=== PATIENT | male | born 1940 | race Caucasian/White ===

== ENCOUNTER 2016-09-22 06:47 | Inpatient (IN) | payer MEDICARE, BC ==
[2016-09-22] VITALS (23 sets, daily range): BP systolic 125–183; BP diastolic 61–98; PULSE 66–94; RESP 11–19; Ht 180.3 cm; Wt 82.3 kg
[~2016-09-22] VITALS: Ht 180.3 cm; Wt 82.3 kg
[~2016-09-22 06:47] MED LIST: ATOR20TA38 PO; BENA20TA48 PO; HYDR12.58 PO; MELO7.5O PO; METFORMIN PO; SITA50TA2 PO; TAMS0.4C2 PO
[2016-09-22] MEDS ORDERED: ROCURONIUM 50 MG INJ ONE ×2 (07:00→12:03)
[2016-09-22] MEDS ORDERED: METF500T4 PO (07:57)
[2016-09-22] MEDS ORDERED: BENA10TA48 PO (07:58)
[2016-09-22] MEDS ORDERED: DOCU100C59 PO (07:59)
[2016-09-22] MEDS ORDERED: CEFAZOLIN 2 GM/50 ML (PMX) 50 ML IVPB SCH (08:30)
[2016-09-22] MEDS ORDERED: LACTATED RINGER'S 1,000 ML IV* SCH (08:30)
[2016-09-22] MEDS ORDERED: D5W-0.45 NACL + KCL 20 MEQ 1,000 ML IV SCH (10:20)
--- NOTE | 2016-09-22 10:20 | HPN ---
Date/Time of Note Date/Time of Note DATE: 09/22/16 TIME: 10:19 Interval H&P Admission Note Pt. seen H&P reviewed: No system changes ARMOND MALDONADO PA-C Sep 22, 2016 10:20
[2016-09-22] MEDS ORDERED: ONDANSETRON 4 MG INJ IV PRN ×2 (10:30→12:30)
[2016-09-22] MEDS ORDERED: BISACODYL 10 MG SUPP PR PRN (10:30)
[2016-09-22] MEDS ORDERED: DIPHENHYDRAMINE 50 MG INJ IV PRN ×2 (10:30→12:30)
[2016-09-22] MEDS ORDERED: AL HYDROX/MG HYDROX/SIMETH 30 ML CUP PO PRN (10:30)
[2016-09-22] MEDS ORDERED: CEPASTAT LOZENGE MT PRN (10:30)
[2016-09-22] MEDS ORDERED: ZOLPIDEM 5 MG TAB PO PRN (10:30)
[2016-09-22] MEDS ORDERED: HYDROmorphONE 1 MG/ML SYG IV PRN (10:30)
[2016-09-22] MEDS ORDERED: NALOXONE (0.4 MG/ML) INJ IV PRN (10:30)
[2016-09-22] MEDS ORDERED: ACETAMINOPHEN 325 MG TAB PO PRN (10:30)
[2016-09-22] MEDS ORDERED: POLYMYXIN/BACITRACIN 1L IRRIG ONE (10:38)
[2016-09-22] MEDS ORDERED: BUPIVACAINE 0.25%/EPI (SDV) 30 ML INJ ONE (10:38)
[2016-09-22] MEDS ORDERED: CA CHLORIDE 10% 10 ML SYRINGE ONE (10:38)
[2016-09-22] MEDS ORDERED: THROMBIN 5000 UNIT VIAL ONE (10:38)
[2016-09-22] MEDS ORDERED: SURGIFOAM POWDER 1 GM KIT ONE (10:38)
[2016-09-22] MEDS ORDERED: FENTAnyl 50 MCG/ML VIAL ONE ×2 (11:11→13:47)
[2016-09-22] MEDS ORDERED: NEOSTIGMINE 3 MG/3 ML SYRINGE ONE (12:03)
[2016-09-22] MEDS ORDERED: LIDOCAINE 2% (SDV) 5 ML INJ ONE (12:03)
[2016-09-22] MEDS ORDERED: PROPOFOL 40 ML ONE (12:03)
[2016-09-22] MEDS ORDERED: GLYCOPYRROLATE 1 MG INJ ONE (12:03)
[2016-09-22] MEDS ORDERED: SUCCINYLCHOLINE CHLORIDE 100 MG/5 ML SYG IV ONE (12:03)
[2016-09-22] MEDS ORDERED: CEFAZOLIN 1 GM INJ ONE (12:03)
[2016-09-22] MEDS ORDERED: MEPERIDINE 25 MG INJ IV PRN (12:30)
[2016-09-22] MEDS ORDERED: METOCLOPRAMIDE 10 MG INJ IV PRN (12:30)
[2016-09-22] MEDS ORDERED: HYDROmorphONE (0.2 MG/ML) 10ML SYG IV PRN ×2 (12:30)
[2016-09-22] MEDS ORDERED: FENTAnyl 50 MCG/ML VIAL IV PRN (12:30)
[2016-09-22] MEDS: HYDROmorphONE (0.2 MG/ML) 10ML SYG IV PRN ×2 (15:48→16:04)
[2016-09-22] MEDS: HYDROmorphONE 0.2 MG/ML PCA IV SCH (15:48)
--- NOTE | 2016-09-22 15:48 | OPR ---
Date/Time of Note Date/Time of Note DATE: 09/22/16 TIME: 15:47 Operative Report Preoperative Diagnosis painful deg scoli Postoperative Diagnosis painful deg scoli Operation/Procedure Performed L2-5 instrumented fusion Surgeon: JAKOB CHOW MD electrician assistant: ARMOND MALDONADO PA-C Anesthesia: general Estimated Blood Loss: 50 - 100 ml's Specimens mole Grafts/Implants altus Complications: None JAKOB CHOW MD Sep 22, 2016 15:48
[2016-09-22] MEDS ORDERED: hydrALAzine 20 MG INJ IV PRN (16:19)
[2016-09-22] MEDS: hydrALAzine 20 MG INJ IV PRN ×2 (16:25→16:34)
--- NOTE | 2016-09-22 16:48 | OPR ---
DATE OF OPERATION: 09/22/2016 PREOPERATIVE DIAGNOSES: 1. Degenerative painful lumbar scoliosis at L2-3, L3-4, L4-5 2. History of previous lumbar laminectomy. POSTOPERATIVE DIAGNOSES: 1. Degenerative painful lumbar scoliosis at L2-3, L3-4, L4-5 2. History of previous lumbar laminectomy. OPERATION PERFORMED: 1. Placement of bilateral pedicle screws at L2, L3, L4, L5 using [employer] navigation. 2. Posterolateral fusion at L2-3, L3-4, L4-5. 3. Use of allograft. 4. Use of C-arm fluoroscopy with interpretation without radiologist present. 5. Intraoperative neuromonitoring (3.5 hours). IMPLANTS: 1. Hinkley Fontaine pedicle screws, 6.5 x 45 mm at L2 bilaterally, 6.5 x 50 mm at L3 bilaterally, 7.5 x 45 mm at L4 and L5 bilaterally. 2. 90 mm rods bilaterally. 3. Fibergraft. PRIMARY SURGEON: Kaushal Martinez MD OIL RECOVERY OPERATOR: Parvin Elmore PA-C NEED FOR INDUCTION BRAZER: During this spinal surgical procedure, my outreach assistant was used to retrac t and protect the spinal nerves and dural sac. My outreach assistant also employed the suction catheters to evacuate blood from the surgical field to improve visualization of the neural structures. The gregorio tant was medically necessary to facilitate the completion of the surgery in a safe and expeditious edward. State of [place] regulations, as well as hospital bylaws, preclude the use of non-license d health care personnel, such as operating room technicians, to perform these functions. FINDINGS: Neuromonitoring at the start of the case revealed left L2 amplitude down 60%, left L3 amp litude down 50%, right L3 amplitude down 30%, left L4 amplitude down 40%, left L5 amplitude down 40% , right L5 amplitude down 20%. At the end of the case, nerve signals returned to normal. The patie nt had degenerative deformity of the lumbar spine. ESTIMATED BLOOD LOSS: 100 mL. DRAINS: None. SPECIMENS: A mole that was in the way during the incision was removed and sent for pathology. COMPLICATIONS OF PROCEDURES: None. ANESTHESIOLOGIST: Dr. Brown TYPE OF ANESTHESIA: General. INDICATIONS FOR PROCEDURE: This is a 75-year-old gentleman with a previous lumbar laminectomy. He has had persistent back pain with instability which is felt to be due to the lumbar scoliosis with t he degenerative deformity. Given this, I recommended proceeding with the above-mentioned surgery. Preoperatively, we discussed the risks, benefits, and alternatives. He understood and wished to pro ceed. DESCRIPTION OF PROCEDURE IN DETAIL: The patient was identified in the preoperative holding area, jerry crawford, taken to the operating room, where he was successfully placed under general an esthesia. Neuromonitoring leads were placed, sequential compressive devices were applied. Givens ca theter was introduced. Neuromonitoring was utilized during this portion of the procedure for 3.5 ho urs to include SSEP, MEP, and EMG. This was performed by [employer]. Start time was 11:45 a. m., closure time was 3:20 p.m. The patient was placed on the operating chair in prone position over a Tai frame. I placed 2 pins into the left iliac crest in order to use the navigation system [employer]. I used both this system and the C-arm to identify the incision sites. I made parasagi ttal incisions bilaterally from L2 to L5. Of note, the L5 level was a transitional level, and I am calling the lowest mobile disk L4-L5 and calling a sacralization of L5 for semantic purposes. I inj ected the paraspinal musculature with 0.25% Marcaine and epinephrine. Incision was made. The fasci a was incised. I then used a Jamshidi needle white using the [employer] navigation and entered the pe dicles of L2, L3, L4, and L5 bilaterally, followed by placement of guidewires. I then placed the ap propriate size pedicle screws at L2, L3, L4, L5 bilaterally, confirming placement with C-arm guidanc e. I then stimulated each of the screws, and there was no evidence of cortical breach. I then plac ed a 90 mm janessa bilaterally with set screws placed with tightening per manufacture's specifications. I removed the extended tabs. I then exposed the transverse process from L2 to L5. I burred the tr ansverse processes bilaterally and placed allograft posterolaterally at L2-3, L3-4, and L4-5 for pos terolateral fusion at these levels. I took final AP and lateral images and was happy with the place ment of the hardware and alignment of the spine. The wound was irrigated and closed in layers using #1 Vicryl, 2-0 Vicryl, 4-0 Monocryl. Dermabond was then applied. The patient was then awakened fr om anesthesia and taken to recovery in stable condition. Lap, sponge, and instrument counts were co rrect x2. There were no apparent complications during the procedure. The patient will be admitted to the orthopedic chau for routine postoperative care to include pain c ontrol, neurovascular checks, antibiotics, and physical therapy. Dictated By: KAUSHAL LUZ/VASILE Conf#: [id number] DID#: [id number]
[2016-09-22] MEDS ORDERED: CEFAZOLIN 1 GM/50 ML (PMX) 50 ML IVPB SCH (17:00)
--- NOTE | 2016-09-22 17:06 | RADRPT ---
PROCEDURE: Intraoperative fluoroscopy. CLINICAL INDICATION: Intraoperative fluoroscopy during lumbar spine surgery. TECHNIQUE: 10 spot intraoperative fluoroscopic images were provided. The images were reviewed on a high-resolution PACS workstation. COMPARISON: X-ray 09/25/2014 FINDINGS: Multiple spot intraoperative fluoroscopic views were provided during lumbar spine surgery. The imag es demonstrate additional metallic probes at the L2, L3, L4 and L5 levels. Subsequent images demons trate placement of paired pedicle screws in L2, L3, L4, L5 vertebral bodies with associated paraspin al fusion rods. The total fluoroscopy time was 209.8 seconds. IMPRESSION: 1. Multiple spot intraoperative fluoroscopic views during lumbar spine surgery were provided. 2. Please see operative report of the same day for further information. RPTAT: HGAS .Demario Pitt MD, Date Time Electronically viewed and signed by .Demario Pitt MD, on 09/22/2016 17:06 .S/
[2016-09-22] MEDS ORDERED: GLUCOSE GEL 15 GRAM TUBE BUCCAL PRN (17:30)
[2016-09-22] MEDS ORDERED: DEXTROSE 50% 50 ML SYRINGE IV PRN ×2 (17:30)
[2016-09-22] MEDS ORDERED: GLUCAGON 1 MG INJ IM PRN (17:30)
[2016-09-22] MEDS ORDERED: GLUCOSE GEL 15 GRAM TUBE PO PRN ×2 (17:30)
[2016-09-22] MEDS: BENAZEPRIL 10 MG TAB PO SCH (17:37)
[2016-09-22] MEDS: INSULIN ASPART [NOVOLOG] 3 ML PEN SC SCH (17:38)
[2016-09-22] MEDS: SOD CHLORIDE 0.9% 1,000 ML IV SCH (17:38)
--- NOTE | 2016-09-22 17:52 | CONS ---
DATE OF ADMISSION: 09/22/2016 DATE OF CONSULTATION: 09/22/2016 TYPE OF CONSULTATION: Thank you very much for allowing me to evaluate this 75-year-old male who jus t underwent lumbar back surgery. HISTORICAL EVENTS: As you well know, he has had multiple back surgeries and because of persistent m ultiple back surgeries, initially in 1990 for left-sided foot drop and then in November 2013, underwen t the C2-7 posterior cervical decompression with improvement in foot drop and his gait in 09/2014. He then underwent an L3-S1 decompression with subsequent surgery in 06/2015 followed by RF ablation in 12/2015 and 2016. Because of continued low back pain, elected to proceed with repeat surgery. In recovery room, his lips are quite dry. He is a bit hoarse but denies cough, wheezing, shortness of breath, nausea, vomiting, abdominal or chest pain. PAST MEDICAL HISTORY: Includes diabetes, hypertension, hyperlipidemia, shoulder replacement (right) . SOCIAL HISTORY: Does not smoke, does not drink. ALLERGIES: NONE. MEDICATIONS: 1. Atorvastatin 20. 2. Benazepril 10 mg per day. 3. Januvia 50. 4. Metformin 500 mg b.i.d. 5. Stool softener. 6. Tamsulosin 0.4. PHYSICAL EXAMINATION: GENERAL: Comfortable male in no acute distress. VITAL SIGNS: BP 158/80, pulse 70, respirations are 20. He was afebrile. EYES: Extraocular muscles were full. NOSE, MOUTH, AND THROAT: Normal. NECK: Supple. There was no jugular venous distention, thyroid enlargement or adenopathy. Carotids 2+, no bruits. LUNGS: Clear. HEART: Rhythm regular, no murmur. No third or fourth sound. ABDOMEN: Nontender. Liver and spleen were not palpable. No masses or tenderness were noted. EXTREMITIES: No edema. Calves nontender. Pulses 2+. NEUROLOGIC: No lateralizing motor weakness. No gross lateralizing motor weakness. IMPRESSION: 1. Stable postop lumbar back surgery. 2. History of hypertension. 3. Medications to be continued. 4. Diabetes. PLAN: Will continue metformin. Sugars will be titrated before meals. IV fluids to be changed to n ormal saline after present IV is complete. We will be alert to postoperative urinary retention and follow with you. Dictated By: RAUL JORDAN MD MR/NTS Conf#: [id number] DID#: [id number]
[2016-09-22] MEDS: CEFAZOLIN 1 GM/50 ML (PMX) 50 ML IVPB SCH (19:33)
[2016-09-22] MEDS: CYCLOBENZAPRINE 10 MG TAB PO PRN (19:50)
[2016-09-22] MEDS: TAMSULOSIN (SR) 0.4 MG CAP PO SCH (21:52)
[2016-09-22] MEDS: ATORVASTATIN 20 MG TAB PO SCH (21:53)
[2016-09-22] MEDS: DOCUSATE SODIUM 100 MG CAP PO SCH (21:53)
[2016-09-23] VITALS (10 sets, daily range): BP systolic 121–157; BP diastolic 58–76; PULSE 75–89; RESP 16–20
[2016-09-23] MEDS: CEFAZOLIN 1 GM/50 ML (PMX) 50 ML IVPB SCH ×2 (04:05→12:50)
[2016-09-23] MEDS: SOD CHLORIDE 0.9% 1,000 ML IV SCH ×4 (04:09→23:00)
[2016-09-23] MEDS: HYDROmorphONE 0.2 MG/ML PCA IV SCH (04:35)
[2016-09-23 06:04] LABS: ADD SCAN DIFF NO
[2016-09-23 06:19] LABS: BASOPHILS % 0.1 % (0.0-2.0); EOSINOPHILS % 0.2 % (0.0-7.0); HEMATOCRIT 36.4 % (42.0-52.0); HEMOGLOBIN 11.9 g/dl (14.0-18.0); LYMPHOCYTES # 0.9 10^3/ul (0.8-2.9); LYMPHOCYTES % 8.1 % (15.0-51.0); MEAN CORPUSCULAR HEMOGLOBIN 30.4 pg (29.0-33.0); MEAN CORPUSCULAR HGB CONC 32.7 g/dl (32.0-37.0); MEAN CORPUSCULAR VOLUME 92.9 fl (82.0-101.0); MEAN PLATELET VOLUME 10.4 fl (7.4-10.4); MONOCYTE # 0.7 10^3/ul (0.3-0.9); MONOCYTES % 6.3 % (0.0-11.0); NEUTROPHIL # 9.7 10^3/ul (1.6-7.5); NEUTROPHILS % 84.9 % (39.0-77.0); PLATELET COUNT 178 10^3/UL (140-415); RED BLOOD COUNT 3.92 10^6/ul (4.70-6.10); RED CELL DISTRIBUTION WIDTH 14.3 % (11.5-14.5); WHITE BLOOD COUNT 11.5 10^3/ul (4.8-10.8)
[2016-09-23 06:41] LABS: CALCIUM 8.6 mg/dl (8.4-10.2); CREATININE 1.06 mg/dl (0.61-1.24); MAGNESIUM 1.8 mg/dl (1.7-2.5); POTASSIUM 4.7 mmol/L (3.5-5.1)
--- NOTE | 2016-09-23 08:01 | CONS ---
Date/Time of Note Date/Time of Note DATE: 09/23/16 TIME: 07:59 Consultation Date/Type/Reason Admit Date/Time Sep 22, 2016 at 06:47 Initial Consult Date 09/23/16 Type of Consultation: Anesthesiology Reason for Consultation Follow up 24 HR Interval Summary Free Text/Dictation Pt seen at bedside is POD#1 s/p L2-5 Posterior Instrumented Fusion. Pt states he is doing well and his pain is adequately controlled via DEPUTY EDITOR IN CHIEF. No N/V/D/CAMPA. Voice is still horse and at baseline. No Anesthetic complications. Constitutional: improved, no complaints Exam/Review of Systems Vital Signs Vitals Vital Signs Date Time Temp Pulse Resp B/P Pulse Ox O2 Delivery O2 Flow Rate FiO2 09/23/16 07:54 98.6 91 20 157/75 94 09/23/16 04:18 Nasal Cannula 2.0 Intake and Output 09/22/16 09/22/16 09/23/16 15:00 23:00 07:00 Intake Total 1890 ml 1300 ml Output Total 300 ml 800 ml Balance 1590 ml 500 ml Results Result Diagram: 09/23/16 0453 09/23/16 0453 Results 24 hrs Laboratory Tests Test 09/22/16 08:32 09/22/16 16:40 09/22/16 17:30 09/23/16 04:53 Bedside Glucose 127 185 183 White Blood Count 11.5 #H Red Blood Count 3.92 #L Hemoglobin 11.9 #L Hematocrit 36.4 #L Mean Corpuscular Volume 92.9 Mean Corpuscular Hemoglobin 30.4 Mean Corpuscular Hemoglobin Concent 32.7 Red Cell Distribution Width 14.3 Platelet Count 178 Mean Platelet Volume 10.4 # Neutrophils % 84.9 H Lymphocytes % 8.1 L Monocytes % 6.3 Eosinophils % 0.2 Basophils % 0.1 Nucleated Red Blood Cells % 0.0 Neutrophils # 9.7 H Lymphocytes # 0.9 Monocytes # 0.7 Eosinophils # 0.0 Basophils # 0.0 Nucleated Red Blood Cells # 0.0 Sodium Level 138 Potassium Level 4.7 Chloride Level 105 Carbon Dioxide Level 25 Anion Gap 13 Blood Urea Nitrogen 25 H Creatinine 1.06 Glucose Level 155 Calcium Level 8.6 Phosphorus Level 4.2 Magnesium Level 1.8 Medications Medications Current Medications Lactated Ringer's (Lr) 1,000 ml @ 20 mls/hr Q24H IV* Last administered on 09/22 15:50; Admin Dose 20 MLS/HR; Start 09/22/16 at 08:30; Stop 09/24/16 at 10: 29 Oxycodone/ Acetaminophen (Endocet (10/ 325)) 1 tab Q4H PRN PO PAIN LEVEL 1-5; Start 09/24/16 at 10:00 Oxycodone/ Acetaminophen (Endocet (10/ 325)) 2 tab Q4H PRN PO PAIN LEVEL 6-10; Start 09/24/16 at 10:00 Hydromorphone HCl (Dilaudid) 0.2 mg Q1H PRN IV BREAKTHROUGH PAIN Last administered on 09/22/16 17:33; Admin Dose 0.2 MG; Start 09/22/16 at 10:30 Ondansetron HCl (Zofran Inj) 4 mg Q6H PRN IV NAUSEA AND/OR VOMITING; Start at 10:30 Bisacodyl (Dulcolax Supp) 10 mg DAILY PRN [place] CONSTIPATION; Start 09/22/16 at 10 :30 Docusate Sodium (Colace) 100 mg BID PO Last administered on 09/22/16 21:53; Admin Dose 100 MG; Start 09/22/16 at 21:00 Al Hydrox/Mg Hydrox/Simethicone (Mag-Al Plus) 15 ml Q6H PRN PO CONSTIPATION/ DYSPEPSIA; Start 09/22/16 at 10:30 Acetaminophen (Tylenol Tab) 650 mg Q4H PRN PO CAMPA OR TEMP GREATER THAN 101.3F; Start 09/22/16 at 10:30 Cyclobenzaprine HCl (Flexeril) 10 mg TID PRN PO MUSCLE SPASMS Last administered on 09/22/16 19:50; Admin Dose 10 MG; Start 09/22/16 at 10:30 Phenol (Cepastat Lozenge) 1 lozenge PRN PRN MT SORE THROAT; Start 09/22/16 at 10:30 Diphenhydramine HCl (Benadryl) 25 mg Q6H PRN IV ITCHING; Start 09/22/16 at 10: 30 Naloxone HCl (Narcan) 0.2 mg Q2M PRN IV RR 8 BREATHS/MIN OR LESS; Start at 10:30 Hydromorphone HCl (Dilaudid DEPUTY EDITOR IN CHIEF) DEPUTY EDITOR IN CHIEF to be started in PACU Q4PCA IV Last administered on 09/23/16 04:35; Admin Dose 6 MG; Start 09/22/16 at 10:30; Stop 09/24/16 at 10:00 Miscellaneous Information 1. Hold DEPUTY EDITOR IN CHIEF at 1,000... DEPUTY EDITOR IN CHIEF IV ; Start 09/22/16 at 10: 30; Stop 09/24/16 at 10:00 Oxycodone/ Acetaminophen (Endocet (10/ 325)) 2 tab ONCE ONCE PO ; Start at 09:30; Stop 09/24/16 at 09:31 Hydralazine HCl 2 mg 2 mg Q10MIN PRN IV ELEVATED BLOOD PRESSURE Last administered on 09/22/16 16:34; Admin Dose 2 MG; Start 09/22/16 at 16:30 Sodium Chloride (NS) 1,000 ml @ 100 mls/hr Q10H IV Last administered on 04:09; Admin Dose 100 MLS/HR; Start 09/22/16 at 17:00 Atorvastatin Calcium (Lipitor) 20 mg HS PO Last administered on 09/22/16 21:53 ; Admin Dose 20 MG; Start 09/22/16 at 21:00 Benazepril HCl (Lotensin) 10 mg DAILY PO Last administered on 09/22/16 17:37; Admin Dose 10 MG; Start 09/22/16 at 17:00 Tamsulosin HCl (Flomax) 0.4 mg DAILY PO Last administered on 09/22/16 21:52; Admin Dose 0.4 MG; Start 09/22/16 at 22:00; Stop 09/30/16 at 10:00 Miscellaneous Information 1 ea NOTE XX ; Start 09/22/16 at 17:30 Glucose (Glutose) 15 gm Q15M PRN PO DECREASED GLUCOSE; Start 09/22/16 at 17:30 Glucose (Glutose) 22.5 gm Q15M PRN PO DECREASED GLUCOSE; Start 09/22/16 at 17: 30 Dextrose (D50w Syringe) 25 ml Q15M PRN IV DECREASED GLUCOSE; Start 09/22/16 at 17:30 Dextrose (D50w Syringe) 50 ml Q15M PRN IV DECREASED GLUCOSE; Start 09/22/16 at 17:30 Glucagon (Glucagen) 1 mg Q15M PRN IM DECREASED GLUCOSE; Start 09/22/16 at 17:30 Glucose 15 gm 15 gm Q15M PRN BUCCAL DECREASED GLUCOSE; Start 09/22/16 at 17:30 Cefazolin Sodium (Ancef 1 Gm/50 ml (Pmx)) 50 ml @ 100 mls/hr Q8H IVPB Last administered on 09/23/16t 04:05; Admin Dose 100 MLS/HR; Start 09/22/16 at 20:00 ; Stop 09/23/16 at 12:29 MARIAH MONTGOMERY Sep 23, 2016 08:00
[2016-09-23] MEDS: TAMSULOSIN (SR) 0.4 MG CAP PO SCH (09:14)
[2016-09-23] MEDS: metFORMIN 500 MG TAB PO SCH ×2 (09:14→17:47)
[2016-09-23] MEDS: BENAZEPRIL 10 MG TAB PO SCH (09:14)
[2016-09-23] MEDS: DOCUSATE SODIUM 100 MG CAP PO SCH ×2 (09:14→20:54)
--- NOTE | 2016-09-23 09:16 | CONS ---
Date/Time of Note Date/Time of Note DATE: 09/23/16 TIME: 09:15 Assessment/Plan Assessment/Plan Additional Assessment/Plan 1. Doing well post op back surgery. 2. DM, sugar control is acceptable 3. Labs were reviewed Consultation Date/Type/Reason Admit Date/Time Sep 22, 2016 at 06:47 Initial Consult Date Type of Consultation: Anesthesiology Detailed Summary Respiratory: No cough, No shortness of breath Cardiovascular: No chest pain Gastrointestinal: no complaints Genitourinary: no complaints, other (stout in place) Musculoskeletal: back pain (moderate) Exam/Review of Systems Vital Signs Vitals Vital Signs Date Time Temp Pulse Resp B/P Pulse Ox O2 Delivery O2 Flow Rate FiO2 09/23/16 07:54 98.6 91 20 157/75 94 09/23/16 04:18 Nasal Cannula 2.0 Intake and Output 09/22/16 09/22/16 09/23/16 15:00 23:00 07:00 Intake Total 1890 ml 1300 ml Output Total 300 ml 800 ml Balance 1590 ml 500 ml Exam Neck: No jvd Respiratory: clear to auscultation Cardiovascular: regular rate and rhythm Gastrointestinal: soft Extremities: No edema (and no calf tend bilat) Results Result Diagram: 09/23/16 0453 09/23/16 0453 Results 24 hrs Laboratory Tests Test 09/22/16 16:40 09/22/16 17:30 09/23/16 04:53 09/23/16 08:47 Bedside Glucose 185 183 201 White Blood Count 11.5 #H Red Blood Count 3.92 #L Hemoglobin 11.9 #L Hematocrit 36.4 #L Mean Corpuscular Volume 92.9 Mean Corpuscular Hemoglobin 30.4 Mean Corpuscular Hemoglobin Concent 32.7 Red Cell Distribution Width 14.3 Platelet Count 178 Mean Platelet Volume 10.4 # Neutrophils % 84.9 H Lymphocytes % 8.1 L Monocytes % 6.3 Eosinophils % 0.2 Basophils % 0.1 Nucleated Red Blood Cells % 0.0 Neutrophils # 9.7 H Lymphocytes # 0.9 Monocytes # 0.7 Eosinophils # 0.0 Basophils # 0.0 Nucleated Red Blood Cells # 0.0 Sodium Level 138 Potassium Level 4.7 Chloride Level 105 Carbon Dioxide Level 25 Anion Gap 13 Blood Urea Nitrogen 25 H Creatinine 1.06 Glucose Level 155 Calcium Level 8.6 Phosphorus Level 4.2 Magnesium Level 1.8 Medications Medications Current Medications Lactated Ringer's (Lr) 1,000 ml @ 20 mls/hr Q24H IV* Last administered on 09/22 15:50; Admin Dose 20 MLS/HR; Start 09/22/16 at 08:30; Stop 09/24/16 at 10: 29 Oxycodone/ Acetaminophen (Endocet (10/ 325)) 1 tab Q4H PRN PO PAIN LEVEL 1-5; Start 09/24/16 at 10:00 Oxycodone/ Acetaminophen (Endocet (10/ 325)) 2 tab Q4H PRN PO PAIN LEVEL 6-10; Start 09/24/16 at 10:00 Hydromorphone HCl (Dilaudid) 0.2 mg Q1H PRN IV BREAKTHROUGH PAIN Last administered on 09/22/16 17:33; Admin Dose 0.2 MG; Start 09/22/16 at 10:30 Ondansetron HCl (Zofran Inj) 4 mg Q6H PRN IV NAUSEA AND/OR VOMITING; Start at 10:30 Bisacodyl (Dulcolax Supp) 10 mg DAILY PRN [place] CONSTIPATION; Start 09/22/16 at 10 :30 Docusate Sodium (Colace) 100 mg BID PO Last administered on 09/22/16 21:53; Admin Dose 100 MG; Start 09/22/16 at 21:00 Al Hydrox/Mg Hydrox/Simethicone (Mag-Al Plus) 15 ml Q6H PRN PO CONSTIPATION/ DYSPEPSIA; Start 09/22/16 at 10:30 Acetaminophen (Tylenol Tab) 650 mg Q4H PRN PO CAMPA OR TEMP GREATER THAN 101.3F; Start 09/22/16 at 10:30 Cyclobenzaprine HCl (Flexeril) 10 mg TID PRN PO MUSCLE SPASMS Last administered on 09/22/16 19:50; Admin Dose 10 MG; Start 09/22/16 at 10:30 Phenol (Cepastat Lozenge) 1 lozenge PRN PRN MT SORE THROAT; Start 09/22/16 at 10:30 Diphenhydramine HCl (Benadryl) 25 mg Q6H PRN IV ITCHING; Start 09/22/16 at 10: 30 Naloxone HCl (Narcan) 0.2 mg Q2M PRN IV RR 8 BREATHS/MIN OR LESS; Start at 10:30 Hydromorphone HCl (Dilaudid BACK FACER) BACK FACER to be started in PACU Q4PCA IV Last administered on 09/23/16 04:35; Admin Dose 6 MG; Start 09/22/16 at 10:30; Stop 09/24/16 at 10:00 Miscellaneous Information 1. Hold BACK FACER at 1,000... BACK FACER IV ; Start 09/22/16 at 10: 30; Stop 09/24/16 at 10:00 Oxycodone/ Acetaminophen (Endocet ()) 2 tab ONCE ONCE PO ; Start at 09:30; Stop 09/24/16 at 09:31 Hydralazine HCl 2 mg 2 mg Q10MIN PRN IV ELEVATED BLOOD PRESSURE Last administered on 09/22/16 16:34; Admin Dose 2 MG; Start 09/22/16 at 16:30 Sodium Chloride (NS) 1,000 ml @ 100 mls/hr Q10H IV Last administered on 04:09; Admin Dose 100 MLS/HR; Start 09/22/16 at 17:00 Atorvastatin Calcium (Lipitor) 20 mg HS PO Last administered on 09/22/16 21:53 ; Admin Dose 20 MG; Start 09/22/16 at 21:00 Benazepril HCl (Lotensin) 10 mg DAILY PO Last administered on 09/22/16 17:37; Admin Dose 10 MG; Start 09/22/16 at 17:00 Tamsulosin HCl (Flomax) 0.4 mg DAILY PO Last administered on 09/22/16 21:52; Admin Dose 0.4 MG; Start 09/22/16 at 22:00; Stop 09/30/16 at 10:00 Miscellaneous Information 1 ea NOTE XX ; Start 09/22/16 at 17:30 Glucose (Glutose) 15 gm Q15M PRN PO DECREASED GLUCOSE; Start 09/22/16 at 17:30 Glucose (Glutose) 22.5 gm Q15M PRN PO DECREASED GLUCOSE; Start 09/22/16 at 17: 30 Dextrose (D50w Syringe) 25 ml Q15M PRN IV DECREASED GLUCOSE; Start 09/22/16 at 17:30 Dextrose (D50w Syringe) 50 ml Q15M PRN IV DECREASED GLUCOSE; Start 09/22/16 at 17:30 Glucagon (Glucagen) 1 mg Q15M PRN IM DECREASED GLUCOSE; Start 09/22/16 at 17:30 Glucose 15 gm 15 gm Q15M PRN BUCCAL DECREASED GLUCOSE; Start 09/22/16 at 17:30 Cefazolin Sodium (Ancef 1 Gm/50 ml (Pmx)) 50 ml @ 100 mls/hr Q8H IVPB Last administered on 09/23/16t 04:05; Admin Dose 100 MLS/HR; Start 09/22/16 at 20:00 ; Stop 09/23/16 at 12:29 RAUL JORDAN MD Sep 23, 2016 09:16
[2016-09-23] MEDS: INSULIN ASPART [NOVOLOG] 3 ML PEN SC SCH ×3 (09:17→17:25)
--- NOTE | 2016-09-23 11:41 | PN ---
Date/Time of Note Date/Time of Note DATE: 09/23/16 TIME: 11:40 Assessment/Plan Lines/Catheters IV Catheter Type (from Nrsg): Saline Lock Givens in Place (from Nrsg): Yes Assessment/Plan Assessment/Plan s/p posterior lumbar instrumented fusion ambulate, PT continue pain control and routine care Subjective 24 Hr Interval Summary pt c/o LBP Exam/Review of Systems Vital Signs Vitals Vital Signs Date Time Temp Pulse Resp B/P Pulse Ox O2 Delivery O2 Flow Rate FiO2 09/23/16 07:54 98.6 91 20 157/75 94 09/23/16 04:18 Nasal Cannula 2.0 Intake and Output 09/22/16 09/22/16 09/23/16 14:59 22:59 06:59 Intake Total 1890 ml 1300 ml Output Total 300 ml 800 ml Balance 1590 ml 500 ml Exam Free Text/Dictation neuro check unchanged pulses palpable Results Result Diagram: 09/23/16 0453 09/23/16 0453 ARMOND MALDONADO PA-C Sep 23, 2016 11:41
[2016-09-23] MEDS: ATORVASTATIN 20 MG TAB PO SCH (20:55)
[2016-09-24] MEDS: SOD CHLORIDE 0.9% 1,000 ML IV SCH ×3 (01:22→19:00)
[2016-09-24 04:49] LABS: ADD SCAN DIFF NO
[2016-09-24 04:51] LABS: BASOPHILS % 0.3 % (0.0-2.0); EOSINOPHILS # 0.1 10^3/ul (0.0-0.5); EOSINOPHILS % 0.5 % (0.0-7.0); HEMATOCRIT 33.6 % (42.0-52.0); HEMOGLOBIN 11.3 g/dl (14.0-18.0); LYMPHOCYTES # 0.9 10^3/ul (0.8-2.9); LYMPHOCYTES % 7.9 % (15.0-51.0); MEAN CORPUSCULAR HEMOGLOBIN 30.6 pg (29.0-33.0); MEAN CORPUSCULAR HGB CONC 33.6 g/dl (32.0-37.0); MEAN CORPUSCULAR VOLUME 91.1 fl (82.0-101.0); MEAN PLATELET VOLUME 9.7 fl (7.4-10.4); MONOCYTE # 0.8 10^3/ul (0.3-0.9); MONOCYTES % 7.6 % (0.0-11.0); NEUTROPHIL # 9.1 10^3/ul (1.6-7.5); NEUTROPHILS % 83.2 % (39.0-77.0); PLATELET COUNT 164 10^3/UL (140-415); RED BLOOD COUNT 3.69 10^6/ul (4.70-6.10); RED CELL DISTRIBUTION WIDTH 14.2 % (11.5-14.5)
[2016-09-24 05:38] LABS: CALCIUM 8.7 mg/dl (8.4-10.2); CREATININE 0.94 mg/dl (0.61-1.24); MAGNESIUM 1.9 mg/dl (1.7-2.5); POTASSIUM 4.2 mmol/L (3.5-5.1)
[2016-09-24] MEDS: INSULIN ASPART [NOVOLOG] 3 ML PEN SC SCH ×3 (07:20→17:25)
[2016-09-24] MEDS: metFORMIN 500 MG TAB PO SCH ×2 (07:50→17:20)
--- NOTE | 2016-09-24 07:51 | PN ---
Date/Time of Note Date/Time of Note DATE: 09/24/16 TIME: 07:49 Assessment/Plan Lines/Catheters IV Catheter Type (from Nrsg): Peripheral IV Stout in Place (from Nrsg): Yes Assessment/Plan Assessment/Plan s/p posterior lumbar instrumented fusion will D/C stout and AIR ANALYSIS TECHNICIAN later today pain control ambulate, continue PT will order acute rehab consult Subjective 24 Hr Interval Summary pt c/o post-operative back pain right leg is feeling better passing gas, no BM yet but feels urge Exam/Review of Systems Vital Signs Vitals Vital Signs Date Time Temp Pulse Resp B/P Pulse Ox O2 Delivery O2 Flow Rate FiO2 09/24/16 06:15 18 09/23/16 19:50 98.6 83 121/58 93 09/23/16 18:00 Room Air 09/23/16 04:18 2.0 Intake and Output 09/23/16 09/23/16 09/24/16 15:00 23:00 07:00 Intake Total 50 ml 1520 ml 1300 ml Output Total 1100 ml 1200 ml Balance 50 ml 420 ml 100 ml Exam Free Text/Dictation neuro check unchanged pulses faint, palpable bilaterally dressing c/d/i mild abdominal distention - no TTP Results Result Diagram: 09/24/16 0430 09/24/16 0430 ARMOND MALDONADO PA-C Sep 24, 2016 07:51
[2016-09-24 08:10] VITALS: BP 124/59; RESP 20
[2016-09-24] MEDS: DOCUSATE SODIUM 100 MG CAP PO SCH ×2 (08:38→20:43)
[2016-09-24] MEDS: BENAZEPRIL 10 MG TAB PO SCH (08:38)
[2016-09-24] MEDS: TAMSULOSIN (SR) 0.4 MG CAP PO SCH (08:38)
[2016-09-24] MEDS ORDERED: OXYCODONE/ACETAMINOPHEN (10/325) TAB PO ONE (09:30)
[2016-09-24] MEDS ORDERED: OXYCODONE/ACETAMINOPHEN (10/325) TAB PO PRN (10:00)
--- NOTE | 2016-09-24 12:49 | CONS ---
Date/Time of Note Date/Time of Note DATE: 09/24/16 TIME: 12:47 Assessment/Plan Assessment/Plan Additional Assessment/Plan 1. Doing well post op back surgery 2. Hx HBP, Bp is acceptable 3. DM, sugars are acceptable Consultation Date/Type/Reason Admit Date/Time Sep 22, 2016 at 06:47 Type of Consultation: Anesthesiology Detailed Summary ENT: sore throat (but no diff swallowing) Respiratory: No cough, No shortness of breath Cardiovascular: No chest pain Gastrointestinal: no complaints Genitourinary: no complaints Musculoskeletal: back pain (moderate) Exam/Review of Systems Vital Signs Vitals Vital Signs Date Time Temp Pulse Resp B/P Pulse Ox O2 Delivery O2 Flow Rate FiO2 09/24/16 11:00 17 09/24/16 08:10 98.9 82 124/59 93 09/23/16 18:00 Room Air 09/23/16 04:18 2.0 Intake and Output 09/23/16 09/23/16 09/24/16 15:00 23:00 07:00 Intake Total 50 ml 1520 ml 1300 ml Output Total 1100 ml 1200 ml Balance 50 ml 420 ml 100 ml Exam Neck: No jvd, No non-tender Respiratory: clear to auscultation Cardiovascular: regular rate and rhythm Gastrointestinal: soft Extremities: No edema (and no calf tend) Results Result Diagram: 09/24/16 0430 09/24/16 0430 Results 24 hrs Laboratory Tests Test 09/23/16 12:49 09/23/16 17:46 09/24/16 04:30 09/24/16 07:57 Bedside Glucose 134 137 114 White Blood Count 11.0 H Red Blood Count 3.69 L Hemoglobin 11.3 L Hematocrit 33.6 L Mean Corpuscular Volume 91.1 Mean Corpuscular Hemoglobin 30.6 Mean Corpuscular Hemoglobin Concent 33.6 Red Cell Distribution Width 14.2 Platelet Count 164 Mean Platelet Volume 9.7 Neutrophils % 83.2 H Lymphocytes % 7.9 L Monocytes % 7.6 Eosinophils % 0.5 Basophils % 0.3 Nucleated Red Blood Cells % 0.0 Neutrophils # 9.1 H Lymphocytes # 0.9 Monocytes # 0.8 Eosinophils # 0.1 Basophils # 0.0 Nucleated Red Blood Cells # 0.0 Sodium Level 138 Potassium Level 4.2 Chloride Level 109 Carbon Dioxide Level 22 Anion Gap 11 Blood Urea Nitrogen 22 H Creatinine 0.94 Glucose Level 132 Calcium Level 8.7 Magnesium Level 1.9 Test 09/24/16 12:23 Bedside Glucose 224 H Medications Medications Current Medications Oxycodone/ Acetaminophen (Endocet (10/ 325)) 1 tab Q4H PRN PO PAIN LEVEL 1-5; Start 09/24/16 at 10:00 Oxycodone/ Acetaminophen (Endocet (10/ 325)) 2 tab Q4H PRN PO PAIN LEVEL 6-10; Start 09/24/16 at 10:00 Hydromorphone HCl (Dilaudid) 0.2 mg Q1H PRN IV BREAKTHROUGH PAIN Last administered on 09/22/16 17:33; Admin Dose 0.2 MG; Start 09/22/16 at 10:30 Ondansetron HCl (Zofran Inj) 4 mg Q6H PRN IV NAUSEA AND/OR VOMITING; Start at 10:30 Bisacodyl (Dulcolax Supp) 10 mg DAILY PRN [place] CONSTIPATION; Start 09/22/16 at 10 :30 Docusate Sodium (Colace) 100 mg BID PO Last administered on 09/24/16 08:38; Admin Dose 100 MG; Start 09/22/16 at 21:00 Al Hydrox/Mg Hydrox/Simethicone (Mag-Al Plus) 15 ml Q6H PRN PO CONSTIPATION/ DYSPEPSIA; Start 09/22/16 at 10:30 Acetaminophen (Tylenol Tab) 650 mg Q4H PRN PO CAMPA OR TEMP GREATER THAN 101.3F; Start 09/22/16 at 10:30 Cyclobenzaprine HCl (Flexeril) 10 mg TID PRN PO MUSCLE SPASMS Last administered on 09/22/16 19:50; Admin Dose 10 MG; Start 09/22/16 at 10:30 Phenol (Cepastat Lozenge) 1 lozenge PRN PRN [place] SORE THROAT; Start 09/22/16 at 10:30 Diphenhydramine HCl (Benadryl) 25 mg Q6H PRN IV ITCHING; Start 09/22/16 at 10: 30 Naloxone HCl (Narcan) 0.2 mg Q2M PRN IV RR 8 BREATHS/MIN OR LESS; Start at 10:30 Hydralazine HCl 2 mg 2 mg Q10MIN PRN IV ELEVATED BLOOD PRESSURE Last administered on 09/22/16 16:34; Admin Dose 2 MG; Start 09/22/16 at 16:30 Sodium Chloride (NS) 1,000 ml @ 100 mls/hr Q10H IV Last administered on 01:22; Admin Dose 100 MLS/HR; Start 09/22/16 at 17:00 Atorvastatin Calcium (Lipitor) 20 mg HS PO Last administered on 09/23/16 20:55 ; Admin Dose 20 MG; Start 09/22/16 at 21:00 Benazepril HCl (Lotensin) 10 mg DAILY PO Last administered on 09/24/16 08:38; Admin Dose 10 MG; Start 09/22/16 at 17:00 Tamsulosin HCl (Flomax) 0.4 mg DAILY PO Last administered on 09/24/16 08:38; Admin Dose 0.4 MG; Start 09/22/16 at 22:00; Stop 09/30/16 at 10:00 Miscellaneous Information 1 ea NOTE XX ; Start 09/22/16 at 17:30 Glucose (Glutose) 15 gm Q15M PRN PO DECREASED GLUCOSE; Start 09/22/16 at 17:30 Glucose (Glutose) 22.5 gm Q15M PRN PO DECREASED GLUCOSE; Start 09/22/16 at 17: 30 Dextrose (D50w Syringe) 25 ml Q15M PRN IV DECREASED GLUCOSE; Start 09/22/16 at 17:30 Dextrose (D50w Syringe) 50 ml Q15M PRN IV DECREASED GLUCOSE; Start 09/22/16 at 17:30 Glucagon (Glucagen) 1 mg Q15M PRN IM DECREASED GLUCOSE; Start 09/22/16 at 17:30 Glucose (Glutose) 15 gm Q15M PRN BUCCAL DECREASED GLUCOSE; Start 09/22/16 at 17 :30 RAUL JORDAN MD Sep 24, 2016 12:49
[2016-09-24] MEDS: ATORVASTATIN 20 MG TAB PO SCH (20:43)
[2016-09-24 21:03] VITALS: BP 140/68; RESP 20
[2016-09-25] VITALS (7 sets, daily range): BP systolic 157–179; BP diastolic 65–86; PULSE 77–96; RESP 18
[2016-09-25] MEDS: SOD CHLORIDE 0.9% 1,000 ML IV SCH (05:00)
[2016-09-25 05:32] LABS: ADD SCAN DIFF NO
[2016-09-25 05:45] LABS: BASOPHILS % 0.2 % (0.0-2.0); EOSINOPHILS # 0.1 10^3/ul (0.0-0.5); EOSINOPHILS % 1.2 % (0.0-7.0); HEMATOCRIT 32.8 % (42.0-52.0); HEMOGLOBIN 10.5 g/dl (14.0-18.0); LYMPHOCYTES # 1.1 10^3/ul (0.8-2.9); LYMPHOCYTES % 10.2 % (15.0-51.0); MEAN CORPUSCULAR HEMOGLOBIN 29.5 pg (29.0-33.0); MEAN CORPUSCULAR VOLUME 92.1 fl (82.0-101.0); MEAN PLATELET VOLUME 10.5 fl (7.4-10.4); MONOCYTE # 0.8 10^3/ul (0.3-0.9); MONOCYTES % 7.9 % (0.0-11.0); NEUTROPHIL # 8.3 10^3/ul (1.6-7.5); NEUTROPHILS % 79.9 % (39.0-77.0); PLATELET COUNT 162 10^3/UL (140-415); RED BLOOD COUNT 3.56 10^6/ul (4.70-6.10); RED CELL DISTRIBUTION WIDTH 14.2 % (11.5-14.5); WHITE BLOOD COUNT 10.3 10^3/ul (4.8-10.8)
[2016-09-25 06:08] LABS: CALCIUM 8.5 mg/dl (8.4-10.2); CREATININE 0.87 mg/dl (0.61-1.24); POTASSIUM 4.1 mmol/L (3.5-5.1)
--- NOTE | 2016-09-25 08:19 | CONS ---
Date/Time of Note Date/Time of Note DATE: 09/25/16 TIME: 08:17 Assessment/Plan Assessment/Plan Additional Assessment/Plan 1. Post op lumbar back surgery. 2. Diff voiding, stout placed and 300+ cc obtained, will leave stout in until tomm and inc flomax, ua and cult ordered 3. CHO's are acceptable 4. BP is acceptable 5. Await transfer to acute rehab Consultation Date/Type/Reason Admit Date/Time Sep 22, 2016 at 06:47 Type of Consultation: Anesthesiology Detailed Summary Respiratory: No cough, No shortness of breath Cardiovascular: No chest pain, No orthopenea Gastrointestinal: no complaints Genitourinary: other (stout is now in place) Musculoskeletal: back pain (moderate, diff to get comfortable) Exam/Review of Systems Vital Signs Vitals Vital Signs Date Time Temp Pulse Resp B/P Pulse Ox O2 Delivery O2 Flow Rate FiO2 09/25/16 07:56 98.4 71 18 157/71 93 09/23/16 18:00 Room Air 09/23/16 04:18 2.0 Intake and Output 09/24/16 09/24/16 09/25/16 15:00 23:00 07:00 Intake Total 240 ml 300 ml Output Total 1300 ml Balance 240 ml -1000 ml Exam Neck: No jvd Respiratory: clear to auscultation Cardiovascular: regular rate and rhythm Gastrointestinal: soft Extremities: No edema (and no calf tend) Results Result Diagram: 09/25/16 0415 09/25/16 0415 Results 24 hrs Laboratory Tests Test 09/24/16 12:23 09/24/16 17:14 09/25/16 04:15 Bedside Glucose 224 H 163 White Blood Count 10.3 Red Blood Count 3.56 L Hemoglobin 10.5 L Hematocrit 32.8 L Mean Corpuscular Volume 92.1 Mean Corpuscular Hemoglobin 29.5 Mean Corpuscular Hemoglobin Concent 32.0 Red Cell Distribution Width 14.2 Platelet Count 162 Mean Platelet Volume 10.5 H Neutrophils % 79.9 H Lymphocytes % 10.2 L Monocytes % 7.9 Eosinophils % 1.2 Basophils % 0.2 Nucleated Red Blood Cells % 0.0 Neutrophils # 8.3 H Lymphocytes # 1.1 Monocytes # 0.8 Eosinophils # 0.1 Basophils # 0.0 Nucleated Red Blood Cells # 0.0 Sodium Level 136 Potassium Level 4.1 Chloride Level 106 Carbon Dioxide Level 25 Anion Gap 9 Blood Urea Nitrogen 18 Creatinine 0.87 Glucose Level 139 Calcium Level 8.5 Magnesium Level 2.0 Medications Medications Current Medications Oxycodone/ Acetaminophen (Endocet (10/ 325)) 1 tab Q4H PRN PO PAIN LEVEL 1-5; Start 09/24/16 at 10:00 Oxycodone/ Acetaminophen (Endocet (10/ 325)) 2 tab Q4H PRN PO PAIN LEVEL 6-10; Start 09/24/16 at 10:00 Hydromorphone HCl (Dilaudid) 0.2 mg Q1H PRN IV BREAKTHROUGH PAIN Last administered on 09/22/16 17:33; Admin Dose 0.2 MG; Start 09/22/16 at 10:30 Ondansetron HCl (Zofran Inj) 4 mg Q6H PRN IV NAUSEA AND/OR VOMITING; Start at 10:30 Bisacodyl (Dulcolax Supp) 10 mg DAILY PRN [place] CONSTIPATION; Start 09/22/16 at 10 :30 Docusate Sodium (Colace) 100 mg BID PO Last administered on 09/24/16 20:43; Admin Dose 100 MG; Start 09/22/16 at 21:00 Al Hydrox/Mg Hydrox/Simethicone (Mag-Al Plus) 15 ml Q6H PRN PO CONSTIPATION/ DYSPEPSIA; Start 09/22/16 at 10:30 Acetaminophen (Tylenol Tab) 650 mg Q4H PRN PO CAMPA OR TEMP GREATER THAN 101.3F; Start 09/22/16 at 10:30 Cyclobenzaprine HCl (Flexeril) 10 mg TID PRN PO MUSCLE SPASMS Last administered on 09/22/16 19:50; Admin Dose 10 MG; Start 09/22/16 at 10:30 Phenol (Cepastat Lozenge) 1 lozenge PRN PRN [place] SORE THROAT; Start 09/22/16 at 10:30 Diphenhydramine HCl (Benadryl) 25 mg Q6H PRN IV ITCHING; Start 09/22/16 at 10: 30 Naloxone HCl (Narcan) 0.2 mg Q2M PRN IV RR 8 BREATHS/MIN OR LESS; Start at 10:30 Hydralazine HCl 2 mg 2 mg Q10MIN PRN IV ELEVATED BLOOD PRESSURE Last administered on 09/22/16 16:34; Admin Dose 2 MG; Start 09/22/16 at 16:30 Sodium Chloride (NS) 1,000 ml @ 100 mls/hr Q10H IV Last administered on 01:22; Admin Dose 100 MLS/HR; Start 09/22/16 at 17:00 Atorvastatin Calcium (Lipitor) 20 mg HS PO Last administered on 09/24/16 20:43 ; Admin Dose 20 MG; Start 09/22/16 at 21:00 Benazepril HCl (Lotensin) 10 mg DAILY PO Last administered on 09/24/16 08:38; Admin Dose 10 MG; Start 09/22/16 at 17:00 Tamsulosin HCl (Flomax) 0.4 mg DAILY PO Last administered on 09/24/16 08:38; Admin Dose 0.4 MG; Start 09/22/16 at 22:00; Stop 09/30/16 at 10:00 Miscellaneous Information 1 ea NOTE XX ; Start 09/22/16 at 17:30 Glucose (Glutose) 15 gm Q15M PRN PO DECREASED GLUCOSE; Start 09/22/16 at 17:30 Glucose (Glutose) 22.5 gm Q15M PRN PO DECREASED GLUCOSE; Start 09/22/16 at 17: 30 Dextrose (D50w Syringe) 25 ml Q15M PRN IV DECREASED GLUCOSE; Start 09/22/16 at 17:30 Dextrose (D50w Syringe) 50 ml Q15M PRN IV DECREASED GLUCOSE; Start 09/22/16 at 17:30 Glucagon (Glucagen) 1 mg Q15M PRN IM DECREASED GLUCOSE; Start 09/22/16 at 17:30 Glucose (Glutose) 15 gm Q15M PRN BUCCAL DECREASED GLUCOSE; Start 09/22/16 at 17 :30 RAUL JORDAN MD Sep 25, 2016 08:19
[2016-09-25] MEDS: TAMSULOSIN (SR) 0.4 MG CAP PO SCH (08:29)
[2016-09-25] MEDS: OXYCODONE/ACETAMINOPHEN (10/325) TAB PO PRN ×2 (08:30→20:59)
[2016-09-25] MEDS: DOCUSATE SODIUM 100 MG CAP PO SCH ×2 (08:30→20:27)
[2016-09-25] MEDS: metFORMIN 500 MG TAB PO SCH ×2 (08:30→18:06)
[2016-09-25] MEDS: BENAZEPRIL 10 MG TAB PO SCH (08:32)
[2016-09-25] MEDS: INSULIN ASPART [NOVOLOG] 3 ML PEN SC SCH ×3 (08:45→17:25)
--- NOTE | 2016-09-25 09:02 | DS ---
DATE OF ADMISSION: 09/22/2016 DATE OF DISCHARGE: 09/25/2016 ADMITTING DIAGNOSIS: Low back pain. DISCHARGE DIAGNOSIS: Low back pain. PROCEDURE: The patient was taken to the operating room on 09/22/2016 and underwent lumbar instrumen apolinar fusion. HOSPITAL COURSE: The patient was admitted to the orthopedic chau after undergoing the above procedu re. His postoperative course was uncomplicated. By postop day 3, he was deemed stable to be transf erred to acute rehabilitation. He was reporting abdominal discomfort and constipation, as well as s houlder pain, and he will continue to be treated by Dr. Angeles for the abdominal issues. Dictated By: JAKOB LUZ/VASILE Conf#: [id number] DID#: [id number]
[2016-09-25] MEDS: ATORVASTATIN 20 MG TAB PO SCH (20:27)
[2016-09-25] MEDS: hydrALAzine 20 MG INJ IV PRN (21:47)
[2016-09-26] MEDS: DOCUSATE SODIUM 100 MG CAP PO SCH ×2 (04:59→08:23)
[2016-09-26 05:00] VITALS: BP 184/78; PULSE 76; RESP 18
[2016-09-26] MEDS: OXYCODONE/ACETAMINOPHEN (10/325) TAB PO PRN ×2 (05:01→10:25)
[2016-09-26] MEDS: hydrALAzine 20 MG INJ IV PRN (05:04)
[2016-09-26 05:40] VITALS: BP 157/74; PULSE 83; RESP 18
[2016-09-26] MEDS: CYCLOBENZAPRINE 10 MG TAB PO PRN (06:05)
[2016-09-26 07:00] VITALS: BP 181/86; RESP 18
[2016-09-26 08:21] VITALS: BP 156/70; PULSE 77
[2016-09-26] MEDS: INSULIN ASPART [NOVOLOG] 3 ML PEN SC SCH (08:22)
[2016-09-26] MEDS: metFORMIN 500 MG TAB PO SCH (08:23)
[2016-09-26] MEDS: BENAZEPRIL 10 MG TAB PO SCH (08:23)
[2016-09-26] MEDS: TAMSULOSIN (SR) 0.4 MG CAP PO SCH (08:23)
[2016-09-26] MEDS ORDERED: BENAZEPRIL 10 MG TAB PO SCH (09:00)
[2016-09-26] MEDS ORDERED: BENAZEPRIL 10 MG TAB PO ONE (09:00)
[2016-09-26 09:25] LABS: ADD UMIC YES; UR ASCORBIC ACID NEGATIVE (NEGATIVE); UR BACTERIA FEW /HPF (NONE SEEN); UR BILIRUBIN (Dip) NEGATIVE (NEGATIVE); UR BLOOD (Dip) 2+ mg/dL (NEGATIVE); UR CLARITY CLEAR (CLEAR); UR COLOR YELLOW (YELLOW); UR GLUCOSE (Dip) NEGATIVE (NEGATIVE); UR KETONES (Dip) NEGATIVE (NEGATIVE); UR LEUKOCYTE ESTERASE (Dip) NEGATIVE Leu/ul (NEGATIVE); UR NITRITE (Dip) NEGATIVE (NEGATIVE); UR RBC 27 /HPF (0-5); UR SPECIFIC GRAVITY (Dip) 1.014 (1.003-1.030); UR TOTAL PROTEIN (Dip) 1+ mg/dl (NEGATIVE); UR UROBILINOGEN (Dip) NEGATIVE (NEGATIVE)
[2016-09-26 09:48] VITALS: BP 156/74; PULSE 71
[2016-09-27] MEDS ORDERED: BENAZEPRIL 10 MG TAB PO SCH (09:00)
== END 2016-09-26 10:45 | DRG 458 ==
LOC: REC 06:47 → MS1 20:10
PROVIDERS: ADMIT Specialist; ATTEND Specialist
PROC: 0HB6XZZ Excision of Back Skin, External Approach (ICD-10-PCS; 2016-09-22)
PROC: 0SG10K1 Fusion of 2 or more Lumbar Vertebral Joints with Nonautologous Tissue Substitute, Posterior Approach, Posterior Column, Open Approach (ICD-10-PCS; principal; 2016-09-24)
PROC: 4A11X4G Monitoring of Peripheral Nervous Electrical Activity, Intraoperative, External Approach (ICD-10-PCS; 2016-09-24)
DX: M41.86 Other forms of scoliosis, lumbar region (principal); E11.9 Type 2 diabetes mellitus without complications; I10 Essential (primary) hypertension; E78.5 Hyperlipidemia, unspecified; R39.198 Other difficulties with micturition; D22.5 Melanocytic nevi of trunk; Z96.611 Presence of right artificial shoulder joint
CPT/HCPCS: 72110; 80048; 81001; 82962; 83735; 84100; 85025; 86999; 87086; 88305; 97116; 97162; 97530; C1713; J0360; J0690; J1170; J1815; J2405; J2710; J3010; J7030; J7120; J7999

== ENCOUNTER 2016-09-25 14:11 | Inpatient (IN) | payer MEDICARE, BC ==
[~2016-09-25] VITALS: Ht 180.3 cm; Wt 82.0 kg
[~2016-09-25 14:11] MED LIST changes: +BENA10TA48 PO; -BENA20TA48 PO; +DOCU100C59 PO; -HYDR12.58 PO; -MELO7.5O PO; +METF500T4 PO; -METFORMIN PO
[2016-09-26] MEDS ORDERED: ACETAMINOPHEN 325 MG TAB PO PRN (12:00)
[2016-09-26] MEDS ORDERED: hydrALAzine 20 MG INJ IV PRN (12:30)
[2016-09-26] MEDS ORDERED: GLUCOSE GEL 15 GRAM TUBE PO PRN ×2 (12:30)
[2016-09-26] MEDS ORDERED: GLUCAGON 1 MG INJ IM PRN (12:30)
[2016-09-26] MEDS ORDERED: GLUCOSE GEL 15 GRAM TUBE BUCCAL PRN (12:30)
[2016-09-26] MEDS ORDERED: CYCLOBENZAPRINE 10 MG TAB PO PRN (12:30)
[2016-09-26] MEDS ORDERED: ZOLPIDEM 5 MG TAB PO PRN (12:30)
[2016-09-26] MEDS ORDERED: DIPHENHYDRAMINE 50 MG INJ IV PRN (12:30)
[2016-09-26] MEDS ORDERED: DEXTROSE 50% 50 ML SYRINGE IV PRN ×2 (12:30)
[2016-09-26] MEDS ORDERED: CEPASTAT LOZENGE MT PRN (12:30)
[2016-09-26] MEDS ORDERED: BISACODYL 10 MG SUPP PR PRN (12:30)
[2016-09-26] MEDS ORDERED: AL HYDROX/MG HYDROX/SIMETH 30 ML CUP PO PRN (12:30)
[2016-09-26] MEDS ORDERED: NALOXONE (0.4 MG/ML) INJ IV PRN (12:30)
[2016-09-26] MEDS ORDERED: ONDANSETRON 4 MG INJ IV PRN (12:30)
[2016-09-26] MEDS: INSULIN ASPART [NOVOLOG] 3 ML PEN SC SCH ×2 (12:32→17:35)
--- NOTE | 2016-09-26 12:33 | HP ---
DATE OF ADMISSION: 09/26/2016 PHYSICAL MEDICINE AND REHABILITATION HISTORY AND PHYSICAL/PHYSICIAN POST- ADMISSION ASSESSMENT REVIEW DATE OF VISIT: 09/26/2016 REHABILITATION IMPAIRMENT GROUP: Other orthopedic, with degenerative painful lumbar scoliosis at L2 to L3, L3 to L4, L4 to L5. CHIEF COMPLAINT: Impaired mobility, low back pain. HISTORY OF PRESENT ILLNESS: This is a 75-year-old male with past medical history significant for diabetes mellitus type 2, hypertension, hyperlipidemia, BPH, history of chronic low back pain with radicular lower extremity symptoms and left foot drop, who had undergone multiple previous spine surgeries, but continued to have persistent back pain with instability which was felt due to lumbar scoliosis with degenerative deformities. The patient was recommended surgical intervention and he went to the OR on 09/22/2016 and underwent placement of bilateral pedicle screws at L2 to L3, L4 to L5, posterior lateral fusion at L2 to L3, L3 to L4, L4 to L5 by Dr. Kaushal Mratinez. No reported intraoperative complications. Postoperatively, the patient is recommended TLSO brace when out of bed. His postoperative course has been complicated by acute postoperative pain as well as uncontrolled blood pressures with adjustments made in his blood pressure medications. Also complicated with urinary retention requiring Givens catheter placement, and anemia. The patient did work with physical and occupational therapies and noted to have a significant overall functional decline from baseline independent status. Currently, the patient is requiring moderate assistance for bed mobility, transfers and gait, moderate to maximal assistance for lower body ADLs, minimal assistance for upper body dressing, supervision for grooming. Due to his overall significant functional decline and ongoing medical comorbidities, the patient was thought to benefit from acute inpatient rehabilitation. PAST MEDICAL AND SURGICAL HISTORY: As stated in history of present illness. Also, the patient has history of right shoulder replacement, multiple prior spine surgeries (including cervical and lumbar spine) beginning in 1990. FAMILY HISTORY: Reports noncontributory. SOCIAL HISTORY: Denies current toxic habits. The patient lives with his ex- in a home with 3 steps to enter. Prior level of function: He was completely independent for all functional mobility and self-care ADLs. He did use a cane intermittently, with history of falls due to left foot drop. Patient reports he was noncompliant with left AFO. MEDICATIONS ON ADMISSION: Reviewed in out electronic medical records including : 1. Tylenol as needed. 2. Maalox as needed. 3. Lipitor. 4. Benazepril. 5. Dulcolax suppository as needed. 6. Flexeril 10 mg 3 times a day as needed. 7. Benadryl as needed. 8. Colace. 9. Dilaudid 0.2 mg IV q. 1 hour as needed. 10. Insulin sliding scale. 11. Metformin. 12. Hydralazine IV as needed. 13. Zofran as needed. 14. Percocet 10/325 mg 1 to 2 tablets q. 4 hours as needed. 15. Flomax. 16. Ambien as needed. ALLERGIES: NO KNOWN DRUG ALLERGIES. LABORATORIES AND IMAGING: Reviewed in electronic medical records, his labs from today show hemoglobin 10.5, hematocrit 32.8. WBC 10.3, platelets 162. BMP from yesterday shows sodium 136, potassium 4.1, BUN 18, creatinine 0.87, magnesium 2. REVIEW OF SYSTEMS: CONSTITUTIONAL: The patient denies fevers, chills. No night sweats. EYES: No new visual changes. No pain. EARS, NOSE AND THROAT: Denies changes in hearing, no difficulty swallowing. Reports voice has been hoarse for at least the past few months, and was waiting to be further evaluated after his spine surgery. RESPIRATORY: Denies shortness of breath, no cough. CARDIOVASCULAR: No chest pain, no palpitations. GENITOURINARY: The patient does have history of BPH and has had postop urinary retention. Givens catheter was removed prior to transfer to acute rehab unit today. No hematuria reproted. GASTROINTESTINAL: Denies nausea or vomiting. He has had some abdominal pain from constipation and did have a suppository yesterday with 2 bowel movements reported. NEUROLOGICAL: Denies any new focal weakness or new paresthesias. MUSCULOSKELETAL: Reports currently moderate pain in his low back. SKIN: Denies itching or rashes. PSYCHIATRIC: Denies current anxiety or depression. REVIEW OF SYSTEMS: Otherwise negative. PHYSICAL EXAMINATION: VITAL SIGNS: BP 142/78, heart rate 72, temperature 97.9F, respiratory rate 18. GENERAL: The patient is well-nourished, well-developed, awake, alert, in no acute distress. HEENT: Normocephalic, atraumatic. Mucous membranes moist. Extraocular muscles appear grossly intact. NECK: Supple, nontender. RESPIRATORY: Lungs clear to auscultation. No crackles or wheezing. Respirations are nonlabored. CARDIOVASCULAR: Regular rate and rhythm, audible S1, S2. No distal edema. ABDOMEN: Soft, nontender. There is hernia present. Bowel sounds are present. No masses palpated. EXTREMITIES: Calves are soft and nontender. No peripheral edema. No cyanosis. SKIN: No rashes. Per pictures taken on admission the back surgical site is clean, dry and intact. PSYCHIATRIC: Affect and mood are appropriate. NEUROLOGICAL/MUSCULOSKELETAL: The patient is awake, alert, in no acute distress , oriented x3, follows simple commands. Speech fluent. Patient has decreased active range of motion in the right more so than left shoulder, which has been chronic. No joint effusions or redness. Otherwise, presents with good plus upper extremity strength. Bilateral lower extremity strength is pain limited, but with antigravity strength except for left foot drop. Denies any new sensory changes. IMPRESSION: 1. Chronic low back pain with history of multiple prior spine surgeries with persistent pain and instability secondary to degenerative lumbar scoliosis at L2 to L3, L3 to L4, L4 to L5 and now status post placement of bilateral pedicle screws at L2 to L3, L4 to L5 and posterior lateral fusion at L2 to L3, L3 to L4 , L4 to L5. 2. Impaired mobility, gait and balance. 3. Impaired self-care and activities of daily living. 4. Acute postoperative pain. 5. History of benign prostatic hypertrophy with postoperative urinary retention. 6. Anemia. 7. Diabetes mellitus type 2. 8. Hypertension. 9. History of left foot drop. 10. History of right shoulder replacement. 11. Hyperlipidemia. 12. Constipation PLAN: 1. The patient will be admitted for inpatient comprehensive interdisciplinary rehabilitation to address the impairments and medical conditions listed above while assessing equipment needs and compensatory strategies with coordinated interdisciplinary services that will include physical and occupational therapies and close monitoring and treatment with 24-hour rehabilitation nursing. The patient is anticipated to tolerate 3 hours daily for at least 5 out of the 7 days per week of therapies. 2. Begin physical therapy for bed mobility, transfers, balance training, gait training with assistive devices as needed. 3. Begin occupational therapy for activities of daily living, functional transfers, adaptive equipment evaluation, and patient education. 4. Rehabilitation nursing to provide the patient education regarding current medications as they relate to medical illness. Monitor blood sugars. Monitor for signs or symptoms of hyperglycemia or hypoglycemia. Monitor pain, monitor bowel and bladder programs and administer such programs and reinforce them with therapies. 5. Dr. Angeles and associates follow for management of medical comorbidities. 6. For his hypertension, suspect likely also exacerbated by pain. Will defer to internal medicine in regards to further adjustment of his blood pressure medications and in the meantime, we will try to optimize pain control. We will continue the current pain regimen including p.r.n. Percocet. We will monitor as he mobilizes further with therapies and adjust pain regimen further as needed. 7. For diabetes mellitus type 2, monitor blood sugars. Continue current medical management. 8. For anemia, continue to monitor hemoglobin and hematocrit. 9. For history of benign prostatic hypertrophy with postop urinary retention, his Flomax dose has been adjusted. Givens catheter was removed earlier today. We will continue to closely monitor his post-void residuals and in and out catheterization as needed. May consider further consultation with urology if needed. 10. For constipation, we will start on bowel regimen. 11. Hyperlipidemia. Continue with statin. 12. The patient is status post spine surgery. Continue surgical site care. Monitor for signs or symptoms of infection. Maintain spine precautions, TLSO brace per spine surgeon instructions. REHABILITATION GOALS: Improve bed mobility, transfers, gait and self-care activities of daily living to modified independent level with assistive devices and adaptive equipment as needed. ESTIMATED LENGTH OF STAY: Approximately 14 days. His case will be discussed with a weekly interdisciplinary conference. Anticipated disposition is to home with family support. PROGNOSIS: At the current time, this inpatient hospital rehabilitation stay is medically necessary to achieve important health and functional goals. The patient requires frequent physician visits, 24-hour rehabilitation nursing and a coordinated intensive rehabilitation program as described above to address complex medical, nursing and rehabilitation needs. The patient has a good prognosis for benefiting from this program and returning to home and community. REHABILITATION PHYSICIAN POST-ADMISSION ASSESSMENT REVIEW: I have had the opportunity to examine the patient within 24 hours of admission and have reviewed the preadmission assessment and find it consistent with my examination and evaluation of the patient. I confirm that this patient is appropriate for admission and treatment in this inpatient rehabilitation hospital, needs intense interdisciplinary rehabilitation care and is expected to achieve meaningful goals within a reasonable period of time that are consistent with the planned discharge disposition as noted above. Dictated By: RODRIGO NEVAREZ MD, RA/VASILE Conf#: [id number] DID#: [id number] MTDD
[2016-09-26 12:35] VITALS: BP 142/78; PULSE 72; RESP 18
[2016-09-26] MEDS ORDERED: POLYETHYLENE GLYCOL 3350 119 GM POWDER PO ONE ×2 (14:30→15:30)
--- NOTE | 2016-09-26 14:36 | CONS ---
Date/Time of Note Date/Time of Note DATE: 09/26/16 TIME: 14:32 Consult Date/Type/Reason Admit Date/Time Sep 26, 2016 at 11:00 Initial Consult Date 09/22/2016 Type of Consultation: Medicine Reason for Consultation DMII, HTN,. HLD, BPH Ordering Provider: JAKOB CHOW MD Subjective Patient had elevated BP overnight, had a few doses of hydral. Transfer to rehab was delayed due to HTN. Givens was removed this am. Currently undergoing voiding trial. Denies fevers, chills, nausea, vomiting, diarrhea, constipation, chest pain, sob, cough. Objective Vital Signs Date Time Temp Pulse Resp B/P Pulse Ox O2 Delivery O2 Flow Rate FiO2 09/26/16 12:35 97.9 72 18 142/78 97 Room Air Exam gen-nad HEENT-op clear, mmm CV-rrr, nml s1/s2, no m/r/g Pulm-CTAB on anterior exam Abd-soft, nt/nd, +BS Ext-no c/c/e Results/Medications Results 24 hrs Laboratory Tests Test 09/26/16 12:23 Bedside Glucose 145 Medications Current Medications Acetaminophen (Tylenol Tab) 650 mg Q4H PRN PO CAMPA OR TEMP GREATER THAN 101.3F; Start 09/26/16 at 12:00 Senna (Senokot) 1 tab HS PO ; Start 09/26/16 at 21:00 Al Hydrox/Mg Hydrox/Simethicone (Mag-Al Plus) 15 ml Q6H PRN PO CONSTIPATION/ DYSPEPSIA; Start 09/26/16 at 12:30 Atorvastatin Calcium (Lipitor) 20 mg HS PO ; Start 09/26/16 at 21:00 Benazepril HCl (Lotensin) 20 mg DAILY PO ; Start 09/27/16 at 09:00 Bisacodyl (Dulcolax Supp) 10 mg DAILY PRN [place] CONSTIPATION; Start 09/26/16 at 12 :30 Cyclobenzaprine HCl (Flexeril) 10 mg TID PRN PO MUSCLE SPASMS; Start 09/26/16 at 12:30 Diphenhydramine HCl (Benadryl) 25 mg Q6H PRN IV ITCHING; Start 09/26/16 at 12: 30 Docusate Sodium (Colace) 100 mg BID PO ; Start 09/26/16 at 21:00 Hydralazine HCl (Apresoline) 2 mg Q10MIN PRN IV ELEVATED BLOOD PRESSURE; Start 09/26/16 at 12:30 Hydromorphone HCl (Dilaudid) 0.2 mg Q1H PRN IV BREAKTHROUGH PAIN; Start at 12:30 Naloxone HCl (Narcan) 0.2 mg Q2M PRN IV RR 8 BREATHS/MIN OR LESS; Start at 12:30 Ondansetron HCl (Zofran Inj) 4 mg Q6H PRN IV NAUSEA AND/OR VOMITING; Start at 12:30 Oxycodone/ Acetaminophen (Endocet (10/ 325)) 1 tab Q4H PRN PO PAIN LEVEL 1-5; Start 09/26/16 at 12:30 Oxycodone/ Acetaminophen (Endocet (10/ 325)) 2 tab Q4H PRN PO PAIN LEVEL 6-10; Start 09/26/16 at 12:30 Phenol (Cepastat Lozenge) 1 lozenge PRN PRN [place] SORE THROAT; Start 09/26/16 at 12:30 Tamsulosin HCl (Flomax) 0.8 mg DAILY PO ; Start 09/27/16 at 09:00 Miscellaneous Information 1 ea NOTE XX ; Start 09/26/16 at 12:30 Glucose (Glutose) 15 gm Q15M PRN PO DECREASED GLUCOSE; Start 09/26/16 at 12:30 Glucose (Glutose) 22.5 gm Q15M PRN PO DECREASED GLUCOSE; Start 09/26/16 at 12: 30 Dextrose (D50w Syringe) 25 ml Q15M PRN IV DECREASED GLUCOSE; Start 09/26/16 at 12:30 Dextrose (D50w Syringe) 50 ml Q15M PRN IV DECREASED GLUCOSE; Start 09/26/16 at 12:30 Glucagon (Glucagen) 1 mg Q15M PRN IM DECREASED GLUCOSE; Start 09/26/16 at 12:30 Glucose (Glutose) 15 gm Q15M PRN BUCCAL DECREASED GLUCOSE; Start 09/26/16 at 12 :30 Polyethylene Glycol (Miralax) 119 gm ONCE ONCE PO ; Start 09/26/16 at 14:30; Stop 09/26/16 at 14:31; Status UNV Polyethylene Glycol (Miralax) 119 gm PRN ONCE PO ; Start 09/26/16 at 14:30; Stop 09/26/16 at 14:31; Status UNV Assessment/Plan Chief Complaint/Hosp Course 75 y/o male pmh DMII, HTN, HLD, BPH adm 09/22 for lumbar fusion, now transferred to acute rehab. Problems: Additional Assessment/Plan #s/p lumbar fusion -pain management/bowel regimen -rehab #BPH -flowmax 0.8, undergoing voiding trial #HTN-better controlled now -benazepril increased to 20mg po qday -hydral prm #DMII-controlled -metformin -AISS MARY JANE RANDOLPH MD Sep 26, 2016 14:36
[2016-09-26] MEDS ORDERED: POLYETHYLENE GLYCOL 3350 119 GM POWDER PO PRN (15:00)
[2016-09-26 15:28] LABS: ADD UMIC YES; UR ASCORBIC ACID NEGATIVE (NEGATIVE); UR BILIRUBIN (Dip) NEGATIVE (NEGATIVE); UR BLOOD (Dip) NEGATIVE (NEGATIVE); UR CLARITY CLEAR (CLEAR); UR COLOR YELLOW (YELLOW); UR GLUCOSE (Dip) NEGATIVE (NEGATIVE); UR KETONES (Dip) NEGATIVE (NEGATIVE); UR LEUKOCYTE ESTERASE (Dip) 1+ Leu/ul (NEGATIVE); UR NITRITE (Dip) NEGATIVE (NEGATIVE); UR RBC 5 /HPF (0-5); UR SPECIFIC GRAVITY (Dip) 1.012 (1.003-1.030); UR TOTAL PROTEIN (Dip) NEGATIVE (NEGATIVE); UR UROBILINOGEN (Dip) NEGATIVE (NEGATIVE)
[2016-09-26] MEDS: OXYCODONE/ACETAMINOPHEN (10/325) TAB PO PRN ×2 (16:08→21:22)
[2016-09-26] MEDS: metFORMIN 500 MG TAB PO SCH (17:35)
[2016-09-26 20:00] VITALS: BP 126/69; RESP 18
[2016-09-26] MEDS: SENNA TAB PO SCH (21:22)
[2016-09-26] MEDS: DOCUSATE SODIUM 100 MG CAP PO SCH (21:22)
[2016-09-26] MEDS: ATORVASTATIN 20 MG TAB PO SCH (21:22)
[2016-09-27 07:31] LABS: ADD SCAN DIFF NO
[2016-09-27 07:52] LABS: BASOPHILS % 0.5 % (0.0-2.0); EOSINOPHILS # 0.2 10^3/ul (0.0-0.5); EOSINOPHILS % 3.5 % (0.0-7.0); HEMATOCRIT 32.2 % (42.0-52.0); HEMOGLOBIN 10.7 g/dl (14.0-18.0); LYMPHOCYTES # 1.3 10^3/ul (0.8-2.9); LYMPHOCYTES % 20.4 % (15.0-51.0); MEAN CORPUSCULAR HEMOGLOBIN 30.4 pg (29.0-33.0); MEAN CORPUSCULAR HGB CONC 33.2 g/dl (32.0-37.0); MEAN CORPUSCULAR VOLUME 91.5 fl (82.0-101.0); MEAN PLATELET VOLUME 9.8 fl (7.4-10.4); MONOCYTE # 0.6 10^3/ul (0.3-0.9); MONOCYTES % 9.7 % (0.0-11.0); NEUTROPHIL # 4.1 10^3/ul (1.6-7.5); NEUTROPHILS % 65.3 % (39.0-77.0); PLATELET COUNT 219 10^3/UL (140-415); RED BLOOD COUNT 3.52 10^6/ul (4.70-6.10); RED CELL DISTRIBUTION WIDTH 13.7 % (11.5-14.5); WHITE BLOOD COUNT 6.3 10^3/ul (4.8-10.8)
[2016-09-27 08:09] LABS: ALBUMIN 3.5 g/dl (3.3-4.9); ALBUMIN/GLOBULIN RATIO 1.66; BILIRUBIN,INDIRECT 0.4 mg/dl (0-1.1); BILIRUBIN,TOTAL 0.4 mg/dl (0.2-1.3); CALCIUM 8.6 mg/dl (8.4-10.2); CREATININE 0.95 mg/dl (0.61-1.24); TOTAL PROTEIN 5.6 g/dl (6.1-8.1)
[2016-09-27 08:11] VITALS: BP 156/74; RESP 17
[2016-09-27] MEDS: INSULIN ASPART [NOVOLOG] 3 ML PEN SC SCH ×3 (08:39→17:46)
[2016-09-27] MEDS: BENAZEPRIL 20 MG TAB PO SCH (08:48)
[2016-09-27] MEDS: TAMSULOSIN (SR) 0.4 MG CAP PO SCH (08:49)
[2016-09-27] MEDS: metFORMIN 500 MG TAB PO SCH ×2 (08:49→17:43)
[2016-09-27] MEDS: DOCUSATE SODIUM 100 MG CAP PO SCH ×2 (08:49→21:00)
--- NOTE | 2016-09-27 10:53 | PN ---
Date/Time of Note Date/Time of Note DATE: 09/27/16 TIME: 10:45 Assessment/Plan VTE Prophylaxis VTE Prophylaxis Intervention: SCD's, other Assessment/Plan Assessment/Plan 1. Chronic low back pain with history of multiple prior spine surgeries with persistent pain and instability secondary to degenerative lumbar scoliosis at L2 -L3, L3-L4, L4-L5 and now status post placement of bilateral pedicle screws at L2-L3, L4-L5 and posterior lateral fusion at L2-L3, L3 -L4, L4- L5. With impaired mobility/gait/ADLs. Continue PT/OT. Mod assist for bed mobility and transfers. 2. Acute postoperative pain. Pain appears to be controlled at this time per patient report, continue prn percocet. Adjust as needed. 3. Post op urinary retention with history of BPH. Givens cath removed yesterday prior to transfer to acute rehab unit. Continue bladder program. On flomax. Monitor PVRs, PVRs less than 250ml yesterday. I/O cath as needed. 4. Anemia. Continue to monitor hemoglobin/hematocrit. 5. Diabetes mellitus type 2. Continue to monitor blood sugars, controlled. Continue medical management per internal medicine. 6. Hypertension. Continue to monitor BP, BP improved with adjustment in medication. Internal medicine managing. 7. History of left foot drop. 8. History of right shoulder replacement with decreased ROM. 9. Hyperlipidemia. Continue statin. 10. Constipation. Continue bowel regimen. Subjective 24 Hr Interval Summary Free Text/Dictation Rehab progress note Subjective: Reports mild pain currently in low back. ROS: Denies chest pain, no shortness of breath, no abdominal pain, no nausea, no vomiting. Reports constipation. Exam/Review of Systems Vital Signs Vitals Vital Signs Date Time Temp Pulse Resp B/P Pulse Ox O2 Delivery O2 Flow Rate FiO2 09/27/16 08:11 98.4 70 17 156/74 96 09/26/16 12:35 Room Air Intake and Output 09/26/16 09/26/16 09/27/16 15:00 23:00 07:00 Intake Total 900 ml Output Total 900 ml 900 ml Balance 0 ml -900 ml Exam General: Awake, alert, no acute distress CV: Regular rate, s1s2 Lungs: Clear to anterior auscultation, no wheezing Abdomen soft, nontender, +bowel sounds Extremities no cyanosis, no new swelling Neuro: No new focal changes. Follows simple commands. Results Result Diagram: 09/27/16 0600 09/27/16 0600 Results 24 hrs Laboratory Tests Test 09/26/16 12:23 09/26/16 13:00 09/26/16 17:23 09/26/16 21:26 Bedside Glucose 145 144 133 Urine Color YELLOW Urine Clarity CLEAR Urine pH 7.0 Urine Specific [place] 1.012 Urine Ketones NEGATIVE Urine Nitrite NEGATIVE Urine Bilirubin NEGATIVE Urine Urobilinogen NEGATIVE Urine Leukocyte Esterase 1+ H Urine Microscopic RBC 5 Urine Microscopic WBC 4 Urine Hemoglobin NEGATIVE Urine Glucose NEGATIVE Urine Total Protein NEGATIVE Test 09/27/16 06:00 09/27/16 08:06 White Blood Count 6.3 # Red Blood Count 3.52 L Hemoglobin 10.7 L Hematocrit 32.2 L Mean Corpuscular Volume 91.5 Mean Corpuscular Hemoglobin 30.4 Mean Corpuscular Hemoglobin Concent 33.2 Red Cell Distribution Width 13.7 Platelet Count 219 # Mean Platelet Volume 9.8 Neutrophils % 65.3 Lymphocytes % 20.4 Monocytes % 9.7 Eosinophils % 3.5 Basophils % 0.5 Nucleated Red Blood Cells % 0.0 Neutrophils # 4.1 Lymphocytes # 1.3 Monocytes # 0.6 Eosinophils # 0.2 Basophils # 0.0 Nucleated Red Blood Cells # 0.0 Sodium Level 136 Potassium Level 4.0 Chloride Level 105 Carbon Dioxide Level 26 Anion Gap 9 Blood Urea Nitrogen 19 Creatinine 0.95 Glucose Level 110 Calcium Level 8.6 Total Bilirubin 0.4 Direct Bilirubin 0.00 Indirect Bilirubin 0.4 Aspartate Amino Transf (AST/SGOT) 28 Alanine Aminotransferase (ALT/SGPT) 38 Alkaline Phosphatase 51 Total Protein 5.6 L Albumin 3.5 Globulin 2.10 Albumin/Globulin Ratio 1.66 Bedside Glucose 148 Medications Medications Current Medications Acetaminophen (Tylenol Tab) 650 mg Q4H PRN PO CAMPA OR TEMP GREATER THAN 101.3F; Start 09/26/16 at 12:00 Senna (Senokot) 1 tab HS PO Last administered on 09/26/16 21:22; Admin Dose 1 TAB; Start 09/26/16 at 21:00 Al Hydrox/Mg Hydrox/Simethicone (Mag-Al Plus) 15 ml Q6H PRN PO CONSTIPATION/ DYSPEPSIA Last administered on 09/26/16 21:34; Admin Dose 15 ML; Start at 12:30 Atorvastatin Calcium (Lipitor) 20 mg HS PO Last administered on 09/26/16 21:22 ; Admin Dose 20 MG; Start 09/26/16 at 21:00 Benazepril HCl (Lotensin) 20 mg DAILY PO Last administered on 09/27/16 08:48; Admin Dose 20 MG; Start 09/27/16 at 09:00 Bisacodyl (Dulcolax Supp) 10 mg DAILY PRN [place] CONSTIPATION; Start 09/26/16 at 12 :30 Cyclobenzaprine HCl (Flexeril) 10 mg TID PRN PO MUSCLE SPASMS; Start 09/26/16 at 12:30 Diphenhydramine HCl (Benadryl) 25 mg Q6H PRN IV ITCHING; Start 09/26/16 at 12: 30 Docusate Sodium (Colace) 100 mg BID PO Last administered on 09/27/16 08:49; Admin Dose 100 MG; Start 09/26/16 at 21:00 Hydralazine HCl (Apresoline) 2 mg Q10MIN PRN IV ELEVATED BLOOD PRESSURE; Start 09/26/16 at 12:30 Hydromorphone HCl (Dilaudid) 0.2 mg Q1H PRN IV BREAKTHROUGH PAIN; Start at 12:30 Naloxone HCl (Narcan) 0.2 mg Q2M PRN IV RR 8 BREATHS/MIN OR LESS; Start at 12:30 Ondansetron HCl (Zofran Inj) 4 mg Q6H PRN IV NAUSEA AND/OR VOMITING; Start at 12:30 Oxycodone/ Acetaminophen (Endocet (10/ 325)) 1 tab Q4H PRN PO PAIN LEVEL 1-5 Last administered on 09/26/16 21:22; Admin Dose 1 TAB; Start 09/26/16 at 12:30 Oxycodone/ Acetaminophen (Endocet (10/ 325)) 2 tab Q4H PRN PO PAIN LEVEL 6-10; Start 09/26/16 at 12:30 Phenol (Cepastat Lozenge) 1 lozenge PRN PRN [place] SORE THROAT; Start 09/26/16 at 12:30 Tamsulosin HCl (Flomax) 0.8 mg DAILY PO Last administered on 6/25/17at 08:49; Admin Dose 0.8 MG; Start 09/27/16 at 09:00 Miscellaneous Information 1 ea NOTE XX ; Start 09/26/16 at 12:30 Glucose (Glutose) 15 gm Q15M PRN PO DECREASED GLUCOSE; Start 09/26/16 at 12:30 Glucose (Glutose) 22.5 gm Q15M PRN PO DECREASED GLUCOSE; Start 09/26/16 at 12: 30 Dextrose (D50w Syringe) 25 ml Q15M PRN IV DECREASED GLUCOSE; Start 09/26/16 at 12:30 Dextrose (D50w Syringe) 50 ml Q15M PRN IV DECREASED GLUCOSE; Start 09/26/16 at 12:30 Glucagon (Glucagen) 1 mg Q15M PRN IM DECREASED GLUCOSE; Start 09/26/16 at 12:30 Glucose (Glutose) 15 gm Q15M PRN BUCCAL DECREASED GLUCOSE; Start 09/26/16 at 12 :30 Polyethylene Glycol (Miralax) 119 gm DAILY PRN PO CONSTIPATION; Start 09/26/16 at 15:00 RODRIGO NEVAREZ Sep 27, 2016 10:53
--- NOTE | 2016-09-27 13:53 | CONS ---
Date/Time of Note Date/Time of Note DATE: 09/27/16 TIME: 13:51 Consult Date/Type/Reason Admit Date/Time Sep 26, 2016 at 11:00 Initial Consult Date 09/22/2016 Type of Consultation: Medicine Ordering Provider: JAKOB CHOW MD Subjective Patient had BM since yesterday. Denies fevers, chills, nausea, vomiting, diarrhea, constipation, chest pain, sob, cough, abdominal pain, dysuria. Pain well controlled. Tolerating diet. Objective Vital Signs Date Time Temp Pulse Resp B/P Pulse Ox O2 Delivery O2 Flow Rate FiO2 09/27/16 08:11 98.4 70 17 156/74 96 09/26/16 12:35 Room Air Intake and Output 09/26/16 09/26/16 09/27/16 15:00 23:00 07:00 Intake Total 900 ml Output Total 900 ml 900 ml Balance 0 ml -900 ml Exam gen-nad HEENT-op clear, mmm CV-rrr, nml s1/s2, no m/r/g Pulm-CTAB Abd-soft, nt/nd, +BS Ext-no c/c/e Results/Medications Result Diagram: 09/27/16 0600 09/27/16 0600 Results 24 hrs Laboratory Tests Test 09/26/16 17:23 09/26/16 21:26 09/27/16 06:00 09/27/16 08:06 Bedside Glucose 144 133 148 White Blood Count 6.3 # Red Blood Count 3.52 L Hemoglobin 10.7 L Hematocrit 32.2 L Mean Corpuscular Volume 91.5 Mean Corpuscular Hemoglobin 30.4 Mean Corpuscular Hemoglobin Concent 33.2 Red Cell Distribution Width 13.7 Platelet Count 219 # Mean Platelet Volume 9.8 Neutrophils % 65.3 Lymphocytes % 20.4 Monocytes % 9.7 Eosinophils % 3.5 Basophils % 0.5 Nucleated Red Blood Cells % 0.0 Neutrophils # 4.1 Lymphocytes # 1.3 Monocytes # 0.6 Eosinophils # 0.2 Basophils # 0.0 Nucleated Red Blood Cells # 0.0 Sodium Level 136 Potassium Level 4.0 Chloride Level 105 Carbon Dioxide Level 26 Anion Gap 9 Blood Urea Nitrogen 19 Creatinine 0.95 Glucose Level 110 Calcium Level 8.6 Total Bilirubin 0.4 Direct Bilirubin 0.00 Indirect Bilirubin 0.4 Aspartate Amino Transf (AST/SGOT) 28 Alanine Aminotransferase (ALT/SGPT) 38 Alkaline Phosphatase 51 Total Protein 5.6 L Albumin 3.5 Globulin 2.10 Albumin/Globulin Ratio 1.66 Test 09/27/16 12:07 Bedside Glucose 194 Medications Current Medications Acetaminophen (Tylenol Tab) 650 mg Q4H PRN PO CAMPA OR TEMP GREATER THAN 101.3F; Start 09/26/16 at 12:00 Senna (Senokot) 1 tab HS PO Last administered on 09/26/16 21:22; Admin Dose 1 TAB; Start 09/26/16 at 21:00 Al Hydrox/Mg Hydrox/Simethicone (Mag-Al Plus) 15 ml Q6H PRN PO CONSTIPATION/ DYSPEPSIA Last administered on 09/26/16 21:34; Admin Dose 15 ML; Start at 12:30 Atorvastatin Calcium (Lipitor) 20 mg HS PO Last administered on 09/26/16 21:22 ; Admin Dose 20 MG; Start 09/26/16 at 21:00 Benazepril HCl (Lotensin) 20 mg DAILY PO Last administered on 09/27/16 08:48; Admin Dose 20 MG; Start 09/27/16 at 09:00 Bisacodyl (Dulcolax Supp) 10 mg DAILY PRN [place] CONSTIPATION; Start 09/26/16 at 12 :30 Cyclobenzaprine HCl (Flexeril) 10 mg TID PRN PO MUSCLE SPASMS; Start 09/26/16 at 12:30 Diphenhydramine HCl (Benadryl) 25 mg Q6H PRN IV ITCHING; Start 09/26/16 at 12: 30 Docusate Sodium (Colace) 100 mg BID PO Last administered on 09/27/16 08:49; Admin Dose 100 MG; Start 09/26/16 at 21:00 Hydralazine HCl (Apresoline) 2 mg Q10MIN PRN IV ELEVATED BLOOD PRESSURE; Start 09/26/16 at 12:30 Hydromorphone HCl (Dilaudid) 0.2 mg Q1H PRN IV BREAKTHROUGH PAIN; Start at 12:30 Naloxone HCl (Narcan) 0.2 mg Q2M PRN IV RR 8 BREATHS/MIN OR LESS; Start at 12:30 Ondansetron HCl (Zofran Inj) 4 mg Q6H PRN IV NAUSEA AND/OR VOMITING; Start at 12:30 Oxycodone/ Acetaminophen (Endocet (10/ 325)) 1 tab Q4H PRN PO PAIN LEVEL 1-5 Last administered on 09/26/16 21:22; Admin Dose 1 TAB; Start 09/26/16 at 12:30 Oxycodone/ Acetaminophen (Endocet (10 325)) 2 tab Q4H PRN PO PAIN LEVEL 6-10; Start 09/26/16 at 12:30 Phenol (Cepastat Lozenge) 1 lozenge PRN PRN [place] SORE THROAT; Start 09/26/16 at 12:30 Tamsulosin HCl (Flomax) 0.8 mg DAILY PO Last administered on 09/27/16 08:49; Admin Dose 0.8 MG; Start 09/27/16 at 09:00 Miscellaneous Information 1 ea NOTE XX ; Start 09/26/16 at 12:30 Glucose (Glutose) 15 gm Q15M PRN PO DECREASED GLUCOSE; Start 09/26/16 at 12:30 Glucose (Glutose) 22.5 gm Q15M PRN PO DECREASED GLUCOSE; Start 09/26/16 at 12: 30 Dextrose (D50w Syringe) 25 ml Q15M PRN IV DECREASED GLUCOSE; Start 09/26/16 at 12:30 Dextrose (D50w Syringe) 50 ml Q15M PRN IV DECREASED GLUCOSE; Start 09/26/16 at 12:30 Glucagon (Glucagen) 1 mg Q15M PRN IM DECREASED GLUCOSE; Start 09/26/16 at 12:30 Glucose (Glutose) 15 gm Q15M PRN BUCCAL DECREASED GLUCOSE; Start 09/26/16 at 12 :30 Polyethylene Glycol (Miralax) 119 gm DAILY PRN PO CONSTIPATION; Start 09/26/16 at 15:00 Assessment/Plan Chief Complaint/Hosp Course 75 y/o male pmh DMII, HTN, HLD, BPH adm 09/22 for lumbar fusion, now transferred to acute rehab. Problems: Additional Assessment/Plan #s/p lumbar fusion -pain management/bowel regimen -rehab #BPH-passed voiding trial, no stout -flowmax 0.8 #HTN-better controlled now -benazepril 20mg po qday -hydral prm #DMII-controlled -metformin -AISS #constipation-resolved. MARY JANE RANDOLPH MD Sep 27, 2016 13:53
[2016-09-27 20:39] VITALS: BP 137/64; RESP 18
[2016-09-27] MEDS: ATORVASTATIN 20 MG TAB PO SCH (20:55)
[2016-09-27] MEDS: SENNA TAB PO SCH (21:00)
[2016-09-28 07:30] VITALS: BP 163/76; RESP 18
--- NOTE | 2016-09-28 08:38 | CONS ---
Date/Time of Note Date/Time of Note DATE: 09/28/16 TIME: 08:36 Assessment/Plan Assessment/Plan Additional Assessment/Plan 1. Doing well post op lumbar back surgery, 2. BP is controlled. 3. Diabetic sugar control is acceptable 4. Diarrhea sec laxatives, bowel regimen modified, C diff pending. Consultation Date/Type/Reason Admit Date/Time Sep 26, 2016 at 11:00 Initial Consult Date Type of Consultation: Medicine Referring Provider: JAKOB CHOW MD Detailed Summary Respiratory: No cough, No shortness of breath Cardiovascular: No chest pain, No orthopenea Gastrointestinal: diarrhea (last night ), No pain Genitourinary: no complaints Musculoskeletal: back pain (mild) Exam/Review of Systems Vital Signs Vitals Vital Signs Date Time Temp Pulse Resp B/P Pulse Ox O2 Delivery O2 Flow Rate FiO2 09/27/16 20:39 98.6 84 18 137/64 94 09/26/16 12:35 Room Air Intake and Output 09/27/16 09/27/16 09/28/16 15:00 23:00 07:00 Intake Total 240 ml 700 ml 200 ml Output Total 689 ml 201 ml 500 ml Balance -449 ml 499 ml -300 ml Exam Neck: No jvd Respiratory: clear to auscultation Cardiovascular: regular rate and rhythm Gastrointestinal: soft Extremities: No edema (adn no calf tend) Results Result Diagram: 09/27/16 0600 09/27/16 0600 Results 24 hrs Laboratory Tests Test 09/27/16 12:07 09/27/16 17:15 09/28/16 07:58 09/28/16 08:00 Bedside Glucose 194 185 145 173 Medications Medications Current Medications Acetaminophen (Tylenol Tab) 650 mg Q4H PRN PO CAMPA OR TEMP GREATER THAN 101.3F; Start 09/26/16 at 12:00 Senna (Senokot) 1 tab HS PO Last administered on 09/26/16 21:22; Admin Dose 1 TAB; Start 09/26/16 at 21:00 Al Hydrox/Mg Hydrox/Simethicone (Mag-Al Plus) 15 ml Q6H PRN PO CONSTIPATION/ DYSPEPSIA Last administered on 09/26/16 21:34; Admin Dose 15 ML; Start at 12:30 Atorvastatin Calcium (Lipitor) 20 mg HS PO Last administered on 09/27/16 20:55 ; Admin Dose 20 MG; Start 09/26/16 at 21:00 Benazepril HCl (Lotensin) 20 mg DAILY PO Last administered on 09/27/16 08:48; Admin Dose 20 MG; Start 09/27/16 at 09:00 Bisacodyl (Dulcolax Supp) 10 mg DAILY PRN [place] CONSTIPATION; Start 09/26/16 at 12 :30 Cyclobenzaprine HCl (Flexeril) 10 mg TID PRN PO MUSCLE SPASMS; Start 09/26/16 at 12:30 Diphenhydramine HCl (Benadryl) 25 mg Q6H PRN IV ITCHING; Start 09/26/16 at 12: 30 Docusate Sodium (Colace) 100 mg BID PO Last administered on 09/27/16 08:49; Admin Dose 100 MG; Start 09/26/16 at 21:00 Hydralazine HCl (Apresoline) 2 mg Q10MIN PRN IV ELEVATED BLOOD PRESSURE; Start 09/26/16 at 12:30 Hydromorphone HCl (Dilaudid) 0.2 mg Q1H PRN IV BREAKTHROUGH PAIN; Start at 12:30 Naloxone HCl (Narcan) 0.2 mg Q2M PRN IV RR 8 BREATHS/MIN OR LESS; Start at 12:30 Ondansetron HCl (Zofran Inj) 4 mg Q6H PRN IV NAUSEA AND/OR VOMITING; Start at 12:30 Oxycodone/ Acetaminophen (Endocet (10/ 325)) 1 tab Q4H PRN PO PAIN LEVEL 1-5 Last administered on 09/26/16 21:22; Admin Dose 1 TAB; Start 09/26/16 at 12:30 Oxycodone/ Acetaminophen (Endocet (10/ 325)) 2 tab Q4H PRN PO PAIN LEVEL 6-10; Start 09/26/16 at 12:30 Phenol (Cepastat Lozenge) 1 lozenge PRN PRN [place] SORE THROAT; Start 09/26/16 at 12:30 Tamsulosin HCl (Flomax) 0.8 mg DAILY PO Last administered on 09/27/16 08:49; Admin Dose 0.8 MG; Start 09/27/16 at 09:00 Miscellaneous Information 1 ea NOTE XX ; Start 09/26/16 at 12:30 Glucose (Glutose) 15 gm Q15M PRN PO DECREASED GLUCOSE; Start 09/26/16 at 12:30 Glucose (Glutose) 22.5 gm Q15M PRN PO DECREASED GLUCOSE; Start 09/26/16 at 12: 30 Dextrose (D50w Syringe) 25 ml Q15M PRN IV DECREASED GLUCOSE; Start 09/26/16 at 12:30 Dextrose (D50w Syringe) 50 ml Q15M PRN IV DECREASED GLUCOSE; Start 09/26/16 at 12:30 Glucagon (Glucagen) 1 mg Q15M PRN IM DECREASED GLUCOSE; Start 09/26/16 at 12:30 Glucose (Glutose) 15 gm Q15M PRN BUCCAL DECREASED GLUCOSE; Start 09/26/16 at 12 :30 Polyethylene Glycol (Miralax) 119 gm DAILY PRN PO CONSTIPATION; Start 09/26/16 at 15:00 RAUL JORDAN MD Sep 28, 2016 08:38
[2016-09-28] MEDS: INSULIN ASPART [NOVOLOG] 3 ML PEN SC SCH ×3 (08:39→17:05)
[2016-09-28] MEDS: TAMSULOSIN (SR) 0.4 MG CAP PO SCH (08:40)
[2016-09-28] MEDS: metFORMIN 500 MG TAB PO SCH ×2 (08:40→17:45)
[2016-09-28] MEDS: BENAZEPRIL 20 MG TAB PO SCH (08:41)
--- NOTE | 2016-09-28 12:18 | CONS ---
Date/Time of Note Date/Time of Note DATE: 09/28/16 TIME: :17 Consult Date/Type/Reason Admit Date/Time Sep 26, 2016 at 11:00 Initial Consult Date Type of Consultation: Medicine Ordering Provider: JAKOB CHOW MD Objective Vital Signs Date Time Temp Pulse Resp B/P Pulse Ox O2 Delivery O2 Flow Rate FiO2 09/28/16 07:30 99.1 18 163/76 95 09/27/16 20:39 84 09/26/16 12:35 Room Air Intake and Output 09/27/16 09/27/16 09/28/16 15:00 23:00 07:00 Intake Total 240 ml 700 ml 200 ml Output Total 689 ml 201 ml 500 ml Balance -449 ml 499 ml -300 ml INTERDISCIPLINARY TEAM CONFERENCE BOWEL- Cont BLADDER-Cont SKIN- intact OT- DRESSING-min BATHING-min TOILETING-min PT- BED MOBILITY-mod TRANSFERS-min/mod AMBULATION-mod 50 feet A/P- Interdisciplinary team conference held today. Please see interdisciplinary sheet. Working toward d.c. on 10/01 with post discharge follow up of physical therapy, occupational therapy. Results/Medications Result Diagram: 09/27/16 0600 09/27/16 0600 Results 24 hrs Laboratory Tests Test 09/27/16 17:15 09/28/16 07:58 09/28/16 08:00 Bedside Glucose 185 145 173 Medications Current Medications Acetaminophen (Tylenol Tab) 650 mg Q4H PRN PO CAMPA OR TEMP GREATER THAN 101.3F; Start 09/26/16 at 12:00 Senna (Senokot) 1 tab HS PO Last administered on 09/26/16 21:22; Admin Dose 1 TAB; Start 09/26/16 at 21:00 Al Hydrox/Mg Hydrox/Simethicone (Mag-Al Plus) 15 ml Q6H PRN PO CONSTIPATION/ DYSPEPSIA Last administered on 09/26/16 21:34; Admin Dose 15 ML; Start at 12:30 Atorvastatin Calcium (Lipitor) 20 mg HS PO Last administered on 09/27/16 20:55 ; Admin Dose 20 MG; Start 09/26/16 at 21:00 Benazepril HCl (Lotensin) 20 mg DAILY PO Last administered on 09/28/16 08:41; Admin Dose 20 MG; Start 09/27/16 at 09:00 Bisacodyl (Dulcolax Supp) 10 mg DAILY PRN [place] CONSTIPATION; Start 09/26/16 at 12 :30 Cyclobenzaprine HCl (Flexeril) 10 mg TID PRN PO MUSCLE SPASMS; Start 09/26/16 at 12:30 Diphenhydramine HCl (Benadryl) 25 mg Q6H PRN IV ITCHING; Start 09/26/16 at 12: 30 Hydralazine HCl (Apresoline) 2 mg Q10MIN PRN IV ELEVATED BLOOD PRESSURE; Start 09/26/16 at 12:30 Hydromorphone HCl (Dilaudid) 0.2 mg Q1H PRN IV BREAKTHROUGH PAIN; Start at 12:30 Naloxone HCl (Narcan) 0.2 mg Q2M PRN IV RR 8 BREATHS/MIN OR LESS; Start at 12:30 Ondansetron HCl (Zofran Inj) 4 mg Q6H PRN IV NAUSEA AND/OR VOMITING; Start at 12:30 Oxycodone/ Acetaminophen (Endocet (10/ 325)) 1 tab Q4H PRN PO PAIN LEVEL 1-5 Last administered on 09/26/16 21:22; Admin Dose 1 TAB; Start 09/26/16 at 12:30 Oxycodone/ Acetaminophen (Endocet (10/ 325)) 2 tab Q4H PRN PO PAIN LEVEL 6-10; Start 09/26/16 at 12:30 Phenol (Cepastat Lozenge) 1 lozenge PRN PRN [place] SORE THROAT; Start 09/26/16 at 12:30 Tamsulosin HCl (Flomax) 0.8 mg DAILY PO Last administered on 09/28/16 08:40; Admin Dose 0.8 MG; Start 09/27/16 at 09:00 Miscellaneous Information 1 ea NOTE XX ; Start 09/26/16 at 12:30 Glucose (Glutose) 15 gm Q15M PRN PO DECREASED GLUCOSE; Start 09/26/16 at 12:30 Glucose (Glutose) 22.5 gm Q15M PRN PO DECREASED GLUCOSE; Start 09/26/16 at 12: 30 Dextrose (D50w Syringe) 25 ml Q15M PRN IV DECREASED GLUCOSE; Start 09/26/16 at 12:30 Dextrose (D50w Syringe) 50 ml Q15M PRN IV DECREASED GLUCOSE; Start 09/26/16 at 12:30 Glucagon (Glucagen) 1 mg Q15M PRN IM DECREASED GLUCOSE; Start 09/26/16 at 12:30 Glucose (Glutose) 15 gm Q15M PRN BUCCAL DECREASED GLUCOSE; Start 09/26/16 at 12 :30 Polyethylene Glycol (Miralax) 119 gm DAILY PRN PO CONSTIPATION; Start 09/26/16 at 15:00 BELLE AVERY MD Sep 28, 2016 12:17
[2016-09-28 20:00] VITALS: BP 164/80; RESP 20
[2016-09-28] MEDS: SENNA TAB PO SCH (20:43)
[2016-09-28] MEDS: ATORVASTATIN 20 MG TAB PO SCH (20:43)
[2016-09-29 06:16] LABS: ADD SCAN DIFF NO
[2016-09-29 06:20] LABS: BASOPHILS % 0.3 % (0.0-2.0); EOSINOPHILS # 0.3 10^3/ul (0.0-0.5); EOSINOPHILS % 2.8 % (0.0-7.0); HEMATOCRIT 35.6 % (42.0-52.0); HEMOGLOBIN 11.4 g/dl (14.0-18.0); LYMPHOCYTES # 1.7 10^3/ul (0.8-2.9); LYMPHOCYTES % 18.9 % (15.0-51.0); MEAN CORPUSCULAR HEMOGLOBIN 29.2 pg (29.0-33.0); MEAN PLATELET VOLUME 9.4 fl (7.4-10.4); MONOCYTE # 0.8 10^3/ul (0.3-0.9); MONOCYTES % 9.2 % (0.0-11.0); NEUTROPHIL # 6.2 10^3/ul (1.6-7.5); NEUTROPHILS % 67.9 % (39.0-77.0); PLATELET COUNT 251 10^3/UL (140-415); RED BLOOD COUNT 3.91 10^6/ul (4.70-6.10); RED CELL DISTRIBUTION WIDTH 13.9 % (11.5-14.5); WHITE BLOOD COUNT 9.2 10^3/ul (4.8-10.8)
[2016-09-29] MEDS: INSULIN ASPART [NOVOLOG] 3 ML PEN SC SCH ×3 (07:05→17:05)
[2016-09-29 07:11] LABS: CALCIUM 9.3 mg/dl (8.4-10.2); CREATININE 0.99 mg/dl (0.61-1.24); PHOSPHORUS 3.9 mg/dl (2.5-4.9)
--- NOTE | 2016-09-29 07:36 | CONS ---
Date/Time of Note Date/Time of Note DATE: 09/29/16 TIME: 07:34 Assessment/Plan Assessment/Plan Additional Assessment/Plan 1. Continues to do well post op lumbar back surgery 2. BP is sl inc, will add HCT today 3. Diarrhea is better, C diff is neg 4. Advise dc planning re-pt preference regarding dc 5. CHO control is adequate Consultation Date/Type/Reason Admit Date/Time Sep 26, 2016 at 11:00 Type of Consultation: Medicine Referring Provider: JAKOB CHOW MD Detailed Summary Respiratory: No cough, No shortness of breath Cardiovascular: No chest pain Gastrointestinal: other (he had 1 loose stool last night withhout brb) Genitourinary: No dysuria Musculoskeletal: back pain (is less ) Exam/Review of Systems Vital Signs Vitals Vital Signs Date Time Temp Pulse Resp B/P Pulse Ox O2 Delivery O2 Flow Rate FiO2 09/28/16 20:00 98.1 85 20 164/80 94 09/26/16 12:35 Room Air Intake and Output 09/28/16 09/28/16 09/29/16 15:00 23:00 07:00 Intake Total 520 ml Output Total 320 ml Balance 200 ml Exam Neck: No jvd Respiratory: clear to auscultation Cardiovascular: regular rate and rhythm Gastrointestinal: soft Extremities: No edema (and no calf tend) Results Result Diagram: 09/29/16 0600 09/29/16 0600 Results 24 hrs Laboratory Tests Test 09/28/16 07:58 09/28/16 08:00 09/28/16 12:10 09/28/16 17:11 Bedside Glucose 145 173 238 H 117 Test 09/29/16 06:00 White Blood Count 9.2 # Red Blood Count 3.91 L Hemoglobin 11.4 L Hematocrit 35.6 L Mean Corpuscular Volume 91.0 Mean Corpuscular Hemoglobin 29.2 Mean Corpuscular Hemoglobin Concent 32.0 Red Cell Distribution Width 13.9 Platelet Count 251 Mean Platelet Volume 9.4 Neutrophils % 67.9 Lymphocytes % 18.9 Monocytes % 9.2 Eosinophils % 2.8 Basophils % 0.3 Nucleated Red Blood Cells % 0.0 Neutrophils # 6.2 Lymphocytes # 1.7 Monocytes # 0.8 Eosinophils # 0.3 Basophils # 0.0 Nucleated Red Blood Cells # 0.0 Sodium Level 140 Potassium Level 5.0 Chloride Level 106 Carbon Dioxide Level 25 Anion Gap 14 Blood Urea Nitrogen 21 H Creatinine 0.99 Glucose Level 129 Calcium Level 9.3 Phosphorus Level 3.9 Magnesium Level 2.0 Medications Medications Current Medications Acetaminophen (Tylenol Tab) 650 mg Q4H PRN PO CAMPA OR TEMP GREATER THAN 101.3F; Start 09/26/16 at 12:00 Senna (Senokot) 1 tab HS PO Last administered on 09/28/16 20:43; Admin Dose 1 TAB; Start 09/26/16 at 21:00 Al Hydrox/Mg Hydrox/Simethicone (Mag-Al Plus) 15 ml Q6H PRN PO CONSTIPATION/ DYSPEPSIA Last administered on 09/26/16 21:34; Admin Dose 15 ML; Start at 12:30 Atorvastatin Calcium (Lipitor) 20 mg HS PO Last administered on 09/28/16 20:43 ; Admin Dose 20 MG; Start 09/26/16 at 21:00 Benazepril HCl (Lotensin) 20 mg DAILY PO Last administered on 09/28/16 08:41; Admin Dose 20 MG; Start 09/27/16 at 09:00 Bisacodyl (Dulcolax Supp) 10 mg DAILY PRN [place] CONSTIPATION; Start 09/26/16 at 12 :30 Cyclobenzaprine HCl (Flexeril) 10 mg TID PRN PO MUSCLE SPASMS; Start 09/26/16 at 12:30 Diphenhydramine HCl (Benadryl) 25 mg Q6H PRN IV ITCHING; Start 09/26/16 at 12: 30 Hydralazine HCl (Apresoline) 2 mg Q10MIN PRN IV ELEVATED BLOOD PRESSURE; Start 09/26/16 at 12:30 Hydromorphone HCl (Dilaudid) 0.2 mg Q1H PRN IV BREAKTHROUGH PAIN; Start at 12:30 Naloxone HCl (Narcan) 0.2 mg Q2M PRN IV RR 8 BREATHS/MIN OR LESS; Start at 12:30 Ondansetron HCl (Zofran Inj) 4 mg Q6H PRN IV NAUSEA AND/OR VOMITING; Start at 12:30 Oxycodone/ Acetaminophen (Endocet (10/ 325)) 1 tab Q4H PRN PO PAIN LEVEL 1-5 Last administered on 09/26/16 21:22; Admin Dose 1 TAB; Start 09/26/16 at 12:30 Oxycodone/ Acetaminophen (Endocet (10/ 325)) 2 tab Q4H PRN PO PAIN LEVEL 6-10; Start 09/26/16 at 12:30 Phenol (Cepastat Lozenge) 1 lozenge PRN PRN [place] SORE THROAT; Start 09/26/16 at 12:30 Tamsulosin HCl (Flomax) 0.8 mg DAILY PO Last administered on 09/28/16 08:40; Admin Dose 0.8 MG; Start 09/27/16 at 09:00 Miscellaneous Information 1 ea NOTE XX ; Start 09/26/16 at 12:30 Glucose (Glutose) 15 gm Q15M PRN PO DECREASED GLUCOSE; Start 09/26/16 at 12:30 Glucose (Glutose) 22.5 gm Q15M PRN PO DECREASED GLUCOSE; Start 09/26/16 at 12: 30 Dextrose (D50w Syringe) 25 ml Q15M PRN IV DECREASED GLUCOSE; Start 09/26/16 at 12:30 Dextrose (D50w Syringe) 50 ml Q15M PRN IV DECREASED GLUCOSE; Start 09/26/16 at 12:30 Glucagon (Glucagen) 1 mg Q15M PRN IM DECREASED GLUCOSE; Start 09/26/16 at 12:30 Glucose (Glutose) 15 gm Q15M PRN BUCCAL DECREASED GLUCOSE; Start 09/26/16 at 12 :30 Polyethylene Glycol (Miralax) 119 gm DAILY PRN PO CONSTIPATION; Start 09/26/16 at 15:00 RAUL JORDAN MD Sep 29, 2016 07:36
[2016-09-29 07:38] VITALS: BP 157/69; RESP 20
[2016-09-29] MEDS: HYDROmorphONE 1 MG/ML SYG IV PRN ×4 (07:55→17:41)
[2016-09-29] MEDS: metFORMIN 500 MG TAB PO SCH ×2 (08:26→17:33)
[2016-09-29] MEDS: TAMSULOSIN (SR) 0.4 MG CAP PO SCH (08:26)
[2016-09-29] MEDS: OXYCODONE/ACETAMINOPHEN (10/325) TAB PO PRN (08:27)
[2016-09-29] MEDS: HYDROCHLOROTHIAZIDE 12.5 MG CAP PO SCH (08:30)
[2016-09-29] MEDS: BENAZEPRIL 20 MG TAB PO SCH (08:30)
--- NOTE | 2016-09-29 11:25 | CONS ---
Date/Time of Note Date/Time of Note DATE: 09/29/16 TIME: 11:25 Consult Date/Type/Reason Admit Date/Time Sep 26, 2016 at 11:00 Type of Consultation: Medicine Ordering Provider: JAKOB CHOW MD Objective Vital Signs Date Time Temp Pulse Resp B/P Pulse Ox O2 Delivery O2 Flow Rate FiO2 09/29/16 07:38 98.1 64 20 157/69 96 09/26/16 12:35 Room Air Intake and Output 09/28/16 09/28/16 09/29/16 15:00 23:00 07:00 Intake Total 520 ml Output Total 320 ml Balance 200 ml Exam pulm-cta sba/cga transfer Results/Medications Result Diagram: 09/29/16 0600 09/29/16 0600 Results 24 hrs Laboratory Tests Test 09/28/16 12:10 09/28/16 17:11 09/29/16 06:00 09/29/16 07:52 Bedside Glucose 238 H 117 132 White Blood Count 9.2 # Red Blood Count 3.91 L Hemoglobin 11.4 L Hematocrit 35.6 L Mean Corpuscular Volume 91.0 Mean Corpuscular Hemoglobin 29.2 Mean Corpuscular Hemoglobin Concent 32.0 Red Cell Distribution Width 13.9 Platelet Count 251 Mean Platelet Volume 9.4 Neutrophils % 67.9 Lymphocytes % 18.9 Monocytes % 9.2 Eosinophils % 2.8 Basophils % 0.3 Nucleated Red Blood Cells % 0.0 Neutrophils # 6.2 Lymphocytes # 1.7 Monocytes # 0.8 Eosinophils # 0.3 Basophils # 0.0 Nucleated Red Blood Cells # 0.0 Sodium Level 140 Potassium Level 5.0 Chloride Level 106 Carbon Dioxide Level 25 Anion Gap 14 Blood Urea Nitrogen 21 H Creatinine 0.99 Glucose Level 129 Calcium Level 9.3 Phosphorus Level 3.9 Magnesium Level 2.0 Medications Current Medications Acetaminophen (Tylenol Tab) 650 mg Q4H PRN PO CAMPA OR TEMP GREATER THAN 101.3F; Start 09/26/16 at 12:00 Senna (Senokot) 1 tab HS PO Last administered on 09/28/16 20:43; Admin Dose 1 TAB; Start 09/26/16 at 21:00 Al Hydrox/Mg Hydrox/Simethicone (Mag-Al Plus) 15 ml Q6H PRN PO CONSTIPATION/ DYSPEPSIA Last administered on 09/26/16 21:34; Admin Dose 15 ML; Start at 12:30 Atorvastatin Calcium (Lipitor) 20 mg HS PO Last administered on 09/28/16 20:43 ; Admin Dose 20 MG; Start 09/26/16 at 21:00 Benazepril HCl (Lotensin) 20 mg DAILY PO Last administered on 09/29/16 08:30; Admin Dose 20 MG; Start 09/27/16 at 09:00 Bisacodyl (Dulcolax Supp) 10 mg DAILY PRN [place] CONSTIPATION; Start 09/26/16 at 12 :30 Cyclobenzaprine HCl (Flexeril) 10 mg TID PRN PO MUSCLE SPASMS; Start 09/26/16 at 12:30 Diphenhydramine HCl (Benadryl) 25 mg Q6H PRN IV ITCHING; Start 09/26/16 at 12: 30 Hydralazine HCl (Apresoline) 2 mg Q10MIN PRN IV ELEVATED BLOOD PRESSURE; Start 09/26/16 at 12:30 Hydromorphone HCl (Dilaudid) 0.2 mg Q1H PRN IV BREAKTHROUGH PAIN; Start at 12:30 Naloxone HCl (Narcan) 0.2 mg Q2M PRN IV RR 8 BREATHS/MIN OR LESS; Start at 12:30 Ondansetron HCl (Zofran Inj) 4 mg Q6H PRN IV NAUSEA AND/OR VOMITING; Start at 12:30 Oxycodone/ Acetaminophen (Endocet (10/ 325)) 1 tab Q4H PRN PO PAIN LEVEL 1-5 Last administered on 09/26/16 21:22; Admin Dose 1 TAB; Start 09/26/16 at 12:30 Oxycodone/ Acetaminophen (Endocet (10/ 325)) 2 tab Q4H PRN PO PAIN LEVEL 6-10 Last administered on 09/29/16 08:27; Admin Dose 2 TAB; Start 09/26/16 at 12:30 Phenol (Cepastat Lozenge) 1 lozenge PRN PRN [place] SORE THROAT; Start 09/26/16 at 12:30 Tamsulosin HCl (Flomax) 0.8 mg DAILY PO Last administered on 6/27/17at 08:26; Admin Dose 0.8 MG; Start 09/27/16 at 09:00 Miscellaneous Information 1 ea NOTE XX ; Start 09/26/16 at 12:30 Glucose (Glutose) 15 gm Q15M PRN PO DECREASED GLUCOSE; Start 09/26/16 at 12:30 Glucose (Glutose) 22.5 gm Q15M PRN PO DECREASED GLUCOSE; Start 09/26/16 at 12: 30 Dextrose (D50w Syringe) 25 ml Q15M PRN IV DECREASED GLUCOSE; Start 09/26/16 at 12:30 Dextrose (D50w Syringe) 50 ml Q15M PRN IV DECREASED GLUCOSE; Start 09/26/16 at 12:30 Glucagon (Glucagen) 1 mg Q15M PRN IM DECREASED GLUCOSE; Start 09/26/16 at 12:30 Glucose (Glutose) 15 gm Q15M PRN BUCCAL DECREASED GLUCOSE; Start 09/26/16 at 12 :30 Polyethylene Glycol (Miralax) 119 gm DAILY PRN PO CONSTIPATION; Start 09/26/16 at 15:00 Hydrochlorothiazide (Hydrochlorothiazide) 12.5 mg DAILY PO Last administered on 09/29/16t 08:30; Admin Dose 12.5 MG; Start 09/29/16 at 09:00 Assessment/Plan Additional Assessment/Plan 1.Rehab- status post placement of bilateral pedicle screws at L2-L3, L4-L5 and posterior lateral fusion at L2-L3, L3 -L4, L4- L5. Continue rehab activities 2. Acute pain- controlled. 3. - voiding 4. Anemia. Continue to monitor hemoglobin/hematocrit. 5. Diabetes mellitus type 2. Continue to monitor blood sugars, controlled. Continue medical management per internal medicine. 6. Hypertension. Continue to monitor BP, BP improved with adjustment in medication. Internal medicine managing. 7. History of left foot drop. 8. History of right shoulder replacement with decreased ROM. 9. Hyperlipidemia. Continue statin. 10. GI- Continue bowel regimen. BELLE AVERY MD Sep 29, 2016 11:25
[2016-09-29 20:00] VITALS: BP 174/82; RESP 18
[2016-09-29] MEDS: ATORVASTATIN 20 MG TAB PO SCH (20:24)
[2016-09-29] MEDS: SENNA TAB PO SCH (20:31)
[2016-09-30] MEDS: INSULIN ASPART [NOVOLOG] 3 ML PEN SC SCH ×3 (07:05→17:05)
[2016-09-30 07:43] VITALS: BP 124/63; RESP 18
--- NOTE | 2016-09-30 08:00 | CONS ---
Date/Time of Note Date/Time of Note DATE: 09/30/16 TIME: 07:58 Assessment/Plan Assessment/Plan Additional Assessment/Plan 1. Doing well post op lumbar back surg 2. BP is now controlled 3. Post void bladder residual is 200+, rev with pt will need Op follow up and no stout for now, ua and cult ordered 4. CHO control is adequate Consultation Date/Type/Reason Admit Date/Time Sep 26, 2016 at 11:00 Type of Consultation: Medicine Referring Provider: JAKOB CHOW MD Detailed Summary ENT: other (hoarseness persists, without diff swallowing and no throat pain) Respiratory: No cough Cardiovascular: No chest pain Gastrointestinal: no complaints Genitourinary: other (mild frequency without dysuria orheamturia) Musculoskeletal: back pain (is less) Exam/Review of Systems Vital Signs Vitals Vital Signs Date Time Temp Pulse Resp B/P Pulse Ox O2 Delivery O2 Flow Rate FiO2 09/30/16 07:43 98.0 71 18 124/63 98 09/26/16 12:35 Room Air Intake and Output 09/29/16 09/29/16 09/30/16 14:59 22:59 06:59 Intake Total 1000 ml 600 ml 240 ml Output Total 450 ml 500 ml 1250 ml Balance 550 ml 100 ml -1010 ml Exam Neck: No jvd Respiratory: clear to auscultation Cardiovascular: regular rate and rhythm Gastrointestinal: soft Extremities: edema (and no calf tend) Results Result Diagram: 09/29/16 0600 09/29/16 0600 Results 24 hrs Laboratory Tests Test 09/29/16 12:06 09/29/16 17:23 09/29/16 20:23 09/30/16 07:48 Bedside Glucose 133 131 131 131 Medications Medications Current Medications Acetaminophen (Tylenol Tab) 650 mg Q4H PRN PO CAMPA OR TEMP GREATER THAN 101.3F; Start 09/26/16 at 12:00 Senna (Senokot) 1 tab HS PO Last administered on 09/28/16 20:43; Admin Dose 1 TAB; Start 09/26/16 at 21:00 Al Hydrox/Mg Hydrox/Simethicone (Mag-Al Plus) 15 ml Q6H PRN PO CONSTIPATION/ DYSPEPSIA Last administered on 09/26/16 21:34; Admin Dose 15 ML; Start at 12:30 Atorvastatin Calcium (Lipitor) 20 mg HS PO Last administered on 09/29/16 20:24 ; Admin Dose 20 MG; Start 09/26/16 at 21:00 Benazepril HCl (Lotensin) 20 mg DAILY PO Last administered on 09/29/16 08:30; Admin Dose 20 MG; Start 09/27/16 at 09:00 Bisacodyl (Dulcolax Supp) 10 mg DAILY PRN [place] CONSTIPATION; Start 09/26/16 at 12 :30 Cyclobenzaprine HCl (Flexeril) 10 mg TID PRN PO MUSCLE SPASMS Last administered on 09/29/16 13:10; Admin Dose 10 MG; Start 09/26/16 at 12:30 Diphenhydramine HCl (Benadryl) 25 mg Q6H PRN IV ITCHING; Start 09/26/16 at 12: 30 Hydralazine HCl (Apresoline) 2 mg Q10MIN PRN IV ELEVATED BLOOD PRESSURE; Start 09/26/16 at 12:30 Hydromorphone HCl (Dilaudid) 0.2 mg Q1H PRN IV BREAKTHROUGH PAIN Last administered on 09/29/16 17:41; Admin Dose 0.2 MG; Start 09/26/16 at 12:30 Naloxone HCl (Narcan) 0.2 mg Q2M PRN IV RR 8 BREATHS/MIN OR LESS; Start at 12:30 Ondansetron HCl (Zofran Inj) 4 mg Q6H PRN IV NAUSEA AND/OR VOMITING; Start at 12:30 Oxycodone/ Acetaminophen (Endocet (10/ 325)) 1 tab Q4H PRN PO PAIN LEVEL 1-5 Last administered on 09/26/16 21:22; Admin Dose 1 TAB; Start 09/26/16 at 12:30 Oxycodone/ Acetaminophen (Endocet (10/ 325)) 2 tab Q4H PRN PO PAIN LEVEL 6-10 Last administered on 09/29/16 08:27; Admin Dose 2 TAB; Start 09/26/16 at 12:30 Phenol (Cepastat Lozenge) 1 lozenge PRN PRN [place] SORE THROAT; Start 09/26/16 at 12:30 Tamsulosin HCl (Flomax) 0.8 mg DAILY PO Last administered on 09/29/16 08:26; Admin Dose 0.8 MG; Start 09/27/16 at 09:00 Miscellaneous Information 1 ea NOTE XX ; Start 09/26/16 at 12:30 Glucose (Glutose) 15 gm Q15M PRN PO DECREASED GLUCOSE; Start 09/26/16 at 12:30 Glucose (Glutose) 22.5 gm Q15M PRN PO DECREASED GLUCOSE; Start 09/26/16 at 12: 30 Dextrose (D50w Syringe) 25 ml Q15M PRN IV DECREASED GLUCOSE; Start 09/26/16 at 12:30 Dextrose (D50w Syringe) 50 ml Q15M PRN IV DECREASED GLUCOSE; Start 09/26/16 at 12:30 Glucagon (Glucagen) 1 mg Q15M PRN IM DECREASED GLUCOSE; Start 09/26/16 at 12:30 Glucose (Glutose) 15 gm Q15M PRN BUCCAL DECREASED GLUCOSE; Start 09/26/16 at 12 :30 Polyethylene Glycol (Miralax) 119 gm DAILY PRN PO CONSTIPATION; Start 09/26/16 at 15:00 Hydrochlorothiazide (Hydrochlorothiazide) 12.5 mg DAILY PO Last administered on 09/29/16 08:30; Admin Dose 12.5 MG; Start 09/29/16 at 09:00 RAUL JORDAN MD Sep 30, 2016 08:00
[2016-09-30] MEDS: HYDROCHLOROTHIAZIDE 12.5 MG CAP PO SCH (08:05)
[2016-09-30] MEDS: metFORMIN 500 MG TAB PO SCH ×2 (08:06→17:43)
[2016-09-30] MEDS: TAMSULOSIN (SR) 0.4 MG CAP PO SCH (08:06)
[2016-09-30] MEDS: BENAZEPRIL 20 MG TAB PO SCH (08:06)
[2016-09-30 08:13] LABS: CALCIUM 9.2 mg/dl (8.4-10.2); CREATININE 0.88 mg/dl (0.61-1.24); MAGNESIUM 1.9 mg/dl (1.7-2.5); PHOSPHORUS 3.7 mg/dl (2.5-4.9); POTASSIUM 4.2 mmol/L (3.5-5.1)
[2016-09-30 09:25] VITALS: BP 132/70
[2016-09-30 09:30] VITALS: BP 122/62
[2016-09-30 09:35] VITALS: BP 97/58
--- NOTE | 2016-09-30 12:54 | CONS ---
Date/Time of Note Date/Time of Note DATE: 09/30/16 TIME: 12:51 Consult Date/Type/Reason Admit Date/Time Sep 26, 2016 at 11:00 Type of Consultation: Medicine Ordering Provider: JAKOB CHOW MD Subjective Comfortable Objective pulm-cta abd-soft Vital Signs Date Time Temp Pulse Resp B/P Pulse Ox O2 Delivery O2 Flow Rate FiO2 09/30/16 09:35 97/58 09/30/16 07:43 98.0 71 18 98 09/26/16 12:35 Room Air Intake and Output 09/29/16 09/29/16 09/30/16 15:00 23:00 07:00 Intake Total 1000 ml 600 ml 240 ml Output Total 450 ml 500 ml 1250 ml Balance 550 ml 100 ml -1010 ml Results/Medications Result Diagram: 09/29/16 0600 09/30/16 0610 Results 24 hrs Laboratory Tests Test 09/29/16 17:23 09/29/16 20:23 09/30/16 06:10 09/30/16 07:48 Bedside Glucose 131 131 131 Sodium Level 140 Potassium Level 4.2 Chloride Level 105 Carbon Dioxide Level 24 Anion Gap 15 Blood Urea Nitrogen 17 Creatinine 0.88 Glucose Level 130 Calcium Level 9.2 Phosphorus Level 3.7 Magnesium Level 1.9 Test 09/30/16 12:20 Bedside Glucose 177 Medications Current Medications Acetaminophen (Tylenol Tab) 650 mg Q4H PRN PO CAMPA OR TEMP GREATER THAN 101.3F; Start 09/26/16 at 12:00 Senna (Senokot) 1 tab HS PO Last administered on 09/28/16 20:43; Admin Dose 1 TAB; Start 09/26/16 at 21:00 Al Hydrox/Mg Hydrox/Simethicone (Mag-Al Plus) 15 ml Q6H PRN PO CONSTIPATION/ DYSPEPSIA Last administered on 09/26/16 21:34; Admin Dose 15 ML; Start at 12:30 Atorvastatin Calcium (Lipitor) 20 mg HS PO Last administered on 09/29/16 20:24 ; Admin Dose 20 MG; Start 09/26/16 at 21:00 Benazepril HCl (Lotensin) 20 mg DAILY PO Last administered on 09/30/16 08:06; Admin Dose 20 MG; Start 09/27/16 at 09:00 Bisacodyl (Dulcolax Supp) 10 mg DAILY PRN [place] CONSTIPATION; Start 09/26/16 at 12 :30 Cyclobenzaprine HCl (Flexeril) 10 mg TID PRN PO MUSCLE SPASMS Last administered on 09/29/16 13:10; Admin Dose 10 MG; Start 09/26/16 at 12:30 Diphenhydramine HCl (Benadryl) 25 mg Q6H PRN IV ITCHING; Start 09/26/16 at 12: 30 Hydralazine HCl (Apresoline) 2 mg Q10MIN PRN IV ELEVATED BLOOD PRESSURE; Start 09/26/16 at 12:30 Hydromorphone HCl (Dilaudid) 0.2 mg Q1H PRN IV BREAKTHROUGH PAIN Last administered on 09/29/16 17:41; Admin Dose 0.2 MG; Start 09/26/16 at 12:30 Naloxone HCl (Narcan) 0.2 mg Q2M PRN IV RR 8 BREATHS/MIN OR LESS; Start at 12:30 Ondansetron HCl (Zofran Inj) 4 mg Q6H PRN IV NAUSEA AND/OR VOMITING; Start at 12:30 Oxycodone/ Acetaminophen (Endocet (10/ 325)) 1 tab Q4H PRN PO PAIN LEVEL 1-5 Last administered on 09/26/16 21:22; Admin Dose 1 TAB; Start 09/26/16 at 12:30 Oxycodone/ Acetaminophen (Endocet (10/ 325)) 2 tab Q4H PRN PO PAIN LEVEL 6-10 Last administered on 09/29/16 08:27; Admin Dose 2 TAB; Start 09/26/16 at 12:30 Phenol (Cepastat Lozenge) 1 lozenge PRN PRN [place] SORE THROAT; Start 09/26/16 at 12:30 Tamsulosin HCl (Flomax) 0.8 mg DAILY PO Last administered on 09/30/16 08:06; Admin Dose 0.8 MG; Start 09/27/16 at 09:00 Miscellaneous Information 1 ea NOTE XX ; Start 09/26/16 at 12:30 Glucose (Glutose) 15 gm Q15M PRN PO DECREASED GLUCOSE; Start 09/26/16 at 12:30 Glucose (Glutose) 22.5 gm Q15M PRN PO DECREASED GLUCOSE; Start 09/26/16 at 12: 30 Dextrose (D50w Syringe) 25 ml Q15M PRN IV DECREASED GLUCOSE; Start 09/26/16 at 12:30 Dextrose (D50w Syringe) 50 ml Q15M PRN IV DECREASED GLUCOSE; Start 09/26/16 at 12:30 Glucagon (Glucagen) 1 mg Q15M PRN IM DECREASED GLUCOSE; Start 09/26/16 at 12:30 Glucose (Glutose) 15 gm Q15M PRN BUCCAL DECREASED GLUCOSE; Start 09/26/16 at 12 :30 Polyethylene Glycol (Miralax) 119 gm DAILY PRN PO CONSTIPATION; Start 09/26/16 at 15:00 Hydrochlorothiazide (Hydrochlorothiazide) 12.5 mg DAILY PO Last administered on 09/30/16t 08:05; Admin Dose 12.5 MG; Start 09/29/16 at 09:00 Assessment/Plan Additional Assessment/Plan 1.Rehab- status post placement of bilateral pedicle screws at L2-L3, L4-L5 and posterior lateral fusion at L2-L3, L3 -L4, L4- L5. Continue rehab 2. Acute pain- controlled. 3. - voiding 4. Anemia. Continue to monitor hemoglobin/hematocrit. 5. Diabetes mellitus type 2. Continue to monitor blood sugars, controlled. Continue medical management per internal medicine. 6. Hypertension. Continue to monitor BP, BP improved with adjustment in medication. Internal medicine managing. 7. History of left foot drop. 8. History of right shoulder replacement with decreased ROM. 9. Hyperlipidemia. Continue statin. 10. GI- Continue bowel regimen. Functional Impact of comorbidities- L foot drop affects mobility BELLE AVERY MD Sep 30, 2016 12:54
[2016-09-30 14:48] LABS: ADD UMIC YES; UR ASCORBIC ACID NEGATIVE (NEGATIVE); UR BACTERIA FEW /HPF (NONE SEEN); UR BILIRUBIN (Dip) NEGATIVE (NEGATIVE); UR BLOOD (Dip) 2+ mg/dL (NEGATIVE); UR CLARITY CLEAR (CLEAR); UR COLOR YELLOW (YELLOW); UR GLUCOSE (Dip) NEGATIVE (NEGATIVE); UR KETONES (Dip) NEGATIVE (NEGATIVE); UR LEUKOCYTE ESTERASE (Dip) NEGATIVE Leu/ul (NEGATIVE); UR NITRITE (Dip) NEGATIVE (NEGATIVE); UR RBC 32 /HPF (0-5); UR SPECIFIC GRAVITY (Dip) 1.011 (1.003-1.030); UR TOTAL PROTEIN (Dip) NEGATIVE (NEGATIVE); UR UROBILINOGEN (Dip) NEGATIVE (NEGATIVE)
[2016-09-30 20:00] VITALS: BP 124/65; RESP 18
[2016-09-30] MEDS: ATORVASTATIN 20 MG TAB PO SCH (20:14)
[2016-09-30] MEDS: SENNA TAB PO SCH (20:15)
[2016-10-01] MEDS: INSULIN ASPART [NOVOLOG] 3 ML PEN SC SCH ×3 (07:05→17:34)
[2016-10-01 07:30] VITALS: BP 112/62; RESP 18
--- NOTE | 2016-10-01 07:54 | CONS ---
Date/Time of Note Date/Time of Note DATE: 10/01/16 TIME: 07:53 Assessment/Plan Assessment/Plan Additional Assessment/Plan 1. Continues to well post op with much less back pain. 2. BP now well controlled. 3. DM, well controlled Consultation Date/Type/Reason Admit Date/Time Sep 26, 2016 at 11:00 Type of Consultation: Medicine Referring Provider: JAKOB CHOW MD Detailed Summary Respiratory: No cough, No shortness of breath Cardiovascular: No chest pain Gastrointestinal: no complaints Genitourinary: no complaints Musculoskeletal: back pain (continues to improve) Exam/Review of Systems Vital Signs Vitals Vital Signs Date Time Temp Pulse Resp B/P Pulse Ox O2 Delivery O2 Flow Rate FiO2 09/30/16 20:00 98.4 79 18 124/65 97 Intake and Output 09/30/16 09/30/16 10/01/16 15:00 23:00 07:00 Intake Total 1060 ml 1080 ml 240 ml Output Total 450 ml 980 ml 600 ml Balance 610 ml 100 ml -360 ml Exam Neck: No jvd Respiratory: clear to auscultation Cardiovascular: regular rate and rhythm Gastrointestinal: soft Extremities: No edema (and no calf tend) Results Result Diagram: 09/29/16 0600 09/30/16 0610 Results 24 hrs Laboratory Tests Test 09/30/16 12:20 09/30/16 13:40 09/30/16 17:35 Bedside Glucose 177 131 Urine Color YELLOW Urine Clarity CLEAR Urine pH 5.0 Urine Specific [place] 1.011 Urine Ketones NEGATIVE Urine Nitrite NEGATIVE Urine Bilirubin NEGATIVE Urine Urobilinogen NEGATIVE Urine Leukocyte Esterase NEGATIVE Urine Microscopic RBC 32 H Urine Microscopic WBC 2 Urine Bacteria FEW A Urine Hemoglobin 2+ H Urine Glucose NEGATIVE Urine Total Protein NEGATIVE Medications Medications Current Medications Acetaminophen (Tylenol Tab) 650 mg Q4H PRN PO CAMPA OR TEMP GREATER THAN 101.3F; Start 09/26/16 at 12:00 Senna (Senokot) 1 tab HS PO Last administered on 09/28/16 20:43; Admin Dose 1 TAB; Start 09/26/16 at 21:00 Al Hydrox/Mg Hydrox/Simethicone (Mag-Al Plus) 15 ml Q6H PRN PO CONSTIPATION/ DYSPEPSIA Last administered on 09/26/16 21:34; Admin Dose 15 ML; Start at 12:30 Atorvastatin Calcium (Lipitor) 20 mg HS PO Last administered on 09/30/16 20:14 ; Admin Dose 20 MG; Start 09/26/16 at 21:00 Benazepril HCl (Lotensin) 20 mg DAILY PO Last administered on 09/30/16 08:06; Admin Dose 20 MG; Start 09/27/16 at 09:00 Bisacodyl (Dulcolax Supp) 10 mg DAILY PRN [place] CONSTIPATION; Start 09/26/16 at 12 :30 Cyclobenzaprine HCl (Flexeril) 10 mg TID PRN PO MUSCLE SPASMS Last administered on 09/29/16 13:10; Admin Dose 10 MG; Start 09/26/16 at 12:30 Diphenhydramine HCl (Benadryl) 25 mg Q6H PRN IV ITCHING; Start 09/26/16 at 12: 30 Hydralazine HCl (Apresoline) 2 mg Q10MIN PRN IV ELEVATED BLOOD PRESSURE; Start 09/26/16 at 12:30 Hydromorphone HCl (Dilaudid) 0.2 mg Q1H PRN IV BREAKTHROUGH PAIN Last administered on 09/29/16 17:41; Admin Dose 0.2 MG; Start 09/26/16 at 12:30 Naloxone HCl (Narcan) 0.2 mg Q2M PRN IV RR 8 BREATHS/MIN OR LESS; Start at 12:30 Ondansetron HCl (Zofran Inj) 4 mg Q6H PRN IV NAUSEA AND/OR VOMITING; Start at 12:30 Oxycodone/ Acetaminophen (Endocet (10/ 325)) 1 tab Q4H PRN PO PAIN LEVEL 1-5 Last administered on 09/26/16 21:22; Admin Dose 1 TAB; Start 09/26/16 at 12:30 Oxycodone/ Acetaminophen (Endocet (10/ 325)) 2 tab Q4H PRN PO PAIN LEVEL 6-10 Last administered on 09/29/16 08:27; Admin Dose 2 TAB; Start 09/26/16 at 12:30 Phenol (Cepastat Lozenge) 1 lozenge PRN PRN [place] SORE THROAT; Start 09/26/16 at 12:30 Tamsulosin HCl (Flomax) 0.8 mg DAILY PO Last administered on 09/30/16 08:06; Admin Dose 0.8 MG; Start 09/27/16 at 09:00 Miscellaneous Information 1 ea NOTE XX ; Start 09/26/16 at 12:30 Glucose (Glutose) 15 gm Q15M PRN PO DECREASED GLUCOSE; Start 09/26/16 at 12:30 Glucose (Glutose) 22.5 gm Q15M PRN PO DECREASED GLUCOSE; Start 09/26/16 at 12: 30 Dextrose (D50w Syringe) 25 ml Q15M PRN IV DECREASED GLUCOSE; Start 09/26/16 at 12:30 Dextrose (D50w Syringe) 50 ml Q15M PRN IV DECREASED GLUCOSE; Start 09/26/16 at 12:30 Glucagon (Glucagen) 1 mg Q15M PRN IM DECREASED GLUCOSE; Start 09/26/16 at 12:30 Glucose (Glutose) 15 gm Q15M PRN BUCCAL DECREASED GLUCOSE; Start 09/26/16 at 12 :30 Polyethylene Glycol (Miralax) 119 gm DAILY PRN PO CONSTIPATION; Start 09/26/16 at 15:00 Hydrochlorothiazide (Hydrochlorothiazide) 12.5 mg DAILY PO Last administered on 09/30/16 08:05; Admin Dose 12.5 MG; Start 09/29/16 at 09:00 RAUL JORDAN MD Oct 01, 2016 07:54
[2016-10-01] MEDS: metFORMIN 500 MG TAB PO SCH ×2 (08:35→17:32)
[2016-10-01] MEDS: BENAZEPRIL 20 MG TAB PO SCH (08:36)
[2016-10-01] MEDS: TAMSULOSIN (SR) 0.4 MG CAP PO SCH (08:36)
[2016-10-01] MEDS: HYDROCHLOROTHIAZIDE 12.5 MG CAP PO SCH (08:36)
[2016-10-01] MEDS ORDERED: LACTULOSE 30ML CUP PO PRN (11:30)
[2016-10-01] MEDS ORDERED: MAGNESIUM HYDROXIDE 30ML CUP PO PRN (11:30)
--- NOTE | 2016-10-01 12:00 | CONS ---
Date/Time of Note Date/Time of Note DATE: 10/01/16 TIME: 11:59 Consult Date/Type/Reason Admit Date/Time Sep 26, 2016 at 11:00 Type of Consultation: Medicine Ordering Provider: JAKOB CHOW MD Subjective Feeling better Objective pulm-cta abd-soft sba ambulation Vital Signs Date Time Temp Pulse Resp B/P Pulse Ox O2 Delivery O2 Flow Rate FiO2 10/01/16 07:30 98.6 72 18 112/62 96 Intake and Output 09/30/16 09/30/16 10/01/16 15:00 23:00 07:00 Intake Total 1060 ml 1080 ml 240 ml Output Total 450 ml 980 ml 600 ml Balance 610 ml 100 ml -360 ml Results/Medications Result Diagram: 09/29/16 0600 09/30/16 0610 Results 24 hrs Laboratory Tests Test 09/30/16 12:20 09/30/16 13:40 09/30/16 17:35 10/01/16 08:10 Bedside Glucose 177 131 129 Urine Color YELLOW Urine Clarity CLEAR Urine pH 5.0 Urine Specific [place] 1.011 Urine Ketones NEGATIVE Urine Nitrite NEGATIVE Urine Bilirubin NEGATIVE Urine Urobilinogen NEGATIVE Urine Leukocyte Esterase NEGATIVE Urine Microscopic RBC 32 H Urine Microscopic WBC 2 Urine Bacteria FEW A Urine Hemoglobin 2+ H Urine Glucose NEGATIVE Urine Total Protein NEGATIVE Medications Current Medications Acetaminophen (Tylenol Tab) 650 mg Q4H PRN PO CAMPA OR TEMP GREATER THAN 101.3F; Start 09/26/16 at 12:00 Senna (Senokot) 1 tab HS PO Last administered on 09/28/16 20:43; Admin Dose 1 TAB; Start 09/26/16 at 21:00 Al Hydrox/Mg Hydrox/Simethicone (Mag-Al Plus) 15 ml Q6H PRN PO CONSTIPATION/ DYSPEPSIA Last administered on 09/26/16 21:34; Admin Dose 15 ML; Start at 12:30 Atorvastatin Calcium (Lipitor) 20 mg HS PO Last administered on 09/30/16 20:14 ; Admin Dose 20 MG; Start 09/26/16 at 21:00 Benazepril HCl (Lotensin) 20 mg DAILY PO Last administered on 09/30/16 08:06; Admin Dose 20 MG; Start 09/27/16 at 09:00 Bisacodyl (Dulcolax Supp) 10 mg DAILY PRN [place] CONSTIPATION; Start 09/26/16 at 12 :30 Cyclobenzaprine HCl (Flexeril) 10 mg TID PRN PO MUSCLE SPASMS Last administered on 09/29/16 13:10; Admin Dose 10 MG; Start 09/26/16 at 12:30 Diphenhydramine HCl (Benadryl) 25 mg Q6H PRN IV ITCHING; Start 09/26/16 at 12: 30 Hydralazine HCl (Apresoline) 2 mg Q10MIN PRN IV ELEVATED BLOOD PRESSURE; Start 09/26/16 at 12:30 Hydromorphone HCl (Dilaudid) 0.2 mg Q1H PRN IV BREAKTHROUGH PAIN Last administered on 09/29/16 17:41; Admin Dose 0.2 MG; Start 09/26/16 at 12:30 Naloxone HCl (Narcan) 0.2 mg Q2M PRN IV RR 8 BREATHS/MIN OR LESS; Start at 12:30 Ondansetron HCl (Zofran Inj) 4 mg Q6H PRN IV NAUSEA AND/OR VOMITING; Start at 12:30 Oxycodone/ Acetaminophen (Endocet (10/ 325)) 1 tab Q4H PRN PO PAIN LEVEL 1-5 Last administered on 09/26/16 21:22; Admin Dose 1 TAB; Start 09/26/16 at 12:30 Oxycodone/ Acetaminophen (Endocet (10/ 325)) 2 tab Q4H PRN PO PAIN LEVEL 6-10 Last administered on 09/29/16 08:27; Admin Dose 2 TAB; Start 09/26/16 at 12:30 Phenol (Cepastat Lozenge) 1 lozenge PRN PRN [place] SORE THROAT; Start 09/26/16 at 12:30 Tamsulosin HCl (Flomax) 0.8 mg DAILY PO Last administered on 10/01/16 08:36; Admin Dose 0.8 MG; Start 09/27/16 at 09:00 Miscellaneous Information 1 ea NOTE XX ; Start 09/26/16 at 12:30 Glucose (Glutose) 15 gm Q15M PRN PO DECREASED GLUCOSE; Start 09/26/16 at 12:30 Glucose (Glutose) 22.5 gm Q15M PRN PO DECREASED GLUCOSE; Start 09/26/16 at 12: 30 Dextrose (D50w Syringe) 25 ml Q15M PRN IV DECREASED GLUCOSE; Start 09/26/16 at 12:30 Dextrose (D50w Syringe) 50 ml Q15M PRN IV DECREASED GLUCOSE; Start 09/26/16 at 12:30 Glucagon (Glucagen) 1 mg Q15M PRN IM DECREASED GLUCOSE; Start 09/26/16 at 12:30 Glucose (Glutose) 15 gm Q15M PRN BUCCAL DECREASED GLUCOSE; Start 09/26/16 at 12 :30 Polyethylene Glycol (Miralax) 119 gm DAILY PRN PO CONSTIPATION; Start 09/26/16 at 15:00 Hydrochlorothiazide (Hydrochlorothiazide) 12.5 mg DAILY PO Last administered on 10/01/16t 08:36; Admin Dose 12.5 MG; Start 09/29/16 at 09:00 Docusate Sodium (Colace) 100 mg BID PO ; Start 10/01/16 at 21:00 Lactulose (Enulose) 20 gm DAILY PRN PO CONSTIPATION; Start 10/01/16 at 11:30 Magnesium Hydroxide (Milk Of Mag) 30 ml DAILY PRN PO CONSTIPATION; Start at 11:30 Assessment/Plan Additional Assessment/Plan Rehab- status post placement of bilateral pedicle screws at L2-L3, L4-L5 and posterior lateral fusion at L2-L3, L3 -L4, L4- L5. Continue rehab activities pain- controlled. - voiding Anemia. Continue to monitor hemoglobin/hematocrit. Diabetes mellitus type 2. Continue to monitor blood sugars, controlled. Continue medical management per internal medicine. Hypertension. Continue to monitor BP, BP improved with adjustment in medication. Internal medicine managing. History of left foot drop. History of right shoulder replacement with decreased ROM. Hyperlipidemia. Continue statin. GI- Continue bowel regimen. Functional Impact of comorbidity- Left foot drop affects mobility. Patient working on improved hip flexion during ambulation BELLE AVERY MD Oct 01, 2016 12:00
[2016-10-01 20:37] VITALS: BP 120/65; RESP 18
[2016-10-01] MEDS: DOCUSATE SODIUM 100 MG CAP PO SCH (20:57)
[2016-10-01] MEDS: ATORVASTATIN 20 MG TAB PO SCH (20:57)
[2016-10-01] MEDS: SENNA TAB PO SCH (20:57)
[2016-10-02] MEDS: INSULIN ASPART [NOVOLOG] 3 ML PEN SC SCH ×3 (07:05→17:38)
[2016-10-02 07:43] VITALS: BP 138/72; RESP 18
--- NOTE | 2016-10-02 07:47 | CONS ---
Date/Time of Note Date/Time of Note DATE: 10/02/16 TIME: 07:46 Assessment/Plan Assessment/Plan Additional Assessment/Plan 1. Doing well post op lumbar back surgery 2. BP well controlled. 3. AODM, controlled Consultation Date/Type/Reason Admit Date/Time Sep 26, 2016 at 11:00 Type of Consultation: Medicine Referring Provider: JAKOB CHOW MD Detailed Summary ENT: other (voice remains hoarse) Respiratory: No cough Cardiovascular: No chest pain, No orthopenea Gastrointestinal: no complaints Genitourinary: no complaints Musculoskeletal: back pain (is less without radic leg pain) Exam/Review of Systems Vital Signs Vitals Vital Signs Date Time Temp Pulse Resp B/P Pulse Ox O2 Delivery O2 Flow Rate FiO2 10/02/16 07:43 98.4 71 18 138/72 96 Intake and Output 10/01/16 10/01/16 10/02/16 15:00 23:00 07:00 Intake Total 630 ml 700 ml Output Total 400 ml 200 ml Balance -400 ml 430 ml 700 ml Exam Neck: No jvd Respiratory: clear to auscultation Cardiovascular: regular rate and rhythm Gastrointestinal: soft Extremities: No edema (and no calf tend) Results Result Diagram: 09/29/16 0600 09/30/16 0610 Results 24 hrs Laboratory Tests Test 10/01/16 08:10 10/01/16 12:22 10/01/16 17:29 Bedside Glucose 129 153 151 Medications Medications Current Medications Acetaminophen (Tylenol Tab) 650 mg Q4H PRN PO CAMPA OR TEMP GREATER THAN 101.3F; Start 09/26/16 at 12:00 Senna (Senokot) 1 tab HS PO Last administered on 10/01/16 20:57; Admin Dose 1 TAB; Start 09/26/16 at 21:00 Al Hydrox/Mg Hydrox/Simethicone (Mag-Al Plus) 15 ml Q6H PRN PO CONSTIPATION/ DYSPEPSIA Last administered on 09/26/16 21:34; Admin Dose 15 ML; Start at 12:30 Atorvastatin Calcium (Lipitor) 20 mg HS PO Last administered on 10/01/16 20:57 ; Admin Dose 20 MG; Start 09/26/16 at 21:00 Benazepril HCl (Lotensin) 20 mg DAILY PO Last administered on 09/30/16 08:06; Admin Dose 20 MG; Start 09/27/16 at 09:00 Bisacodyl (Dulcolax Supp) 10 mg DAILY PRN [place] CONSTIPATION; Start 09/26/16 at 12 :30 Cyclobenzaprine HCl (Flexeril) 10 mg TID PRN PO MUSCLE SPASMS Last administered on 09/29/16 13:10; Admin Dose 10 MG; Start 09/26/16 at 12:30 Diphenhydramine HCl (Benadryl) 25 mg Q6H PRN IV ITCHING; Start 09/26/16 at 12: 30 Hydralazine HCl (Apresoline) 2 mg Q10MIN PRN IV ELEVATED BLOOD PRESSURE; Start 09/26/16 at 12:30 Hydromorphone HCl (Dilaudid) 0.2 mg Q1H PRN IV BREAKTHROUGH PAIN Last administered on 09/29/16 17:41; Admin Dose 0.2 MG; Start 09/26/16 at 12:30 Naloxone HCl (Narcan) 0.2 mg Q2M PRN IV RR 8 BREATHS/MIN OR LESS; Start at 12:30 Ondansetron HCl (Zofran Inj) 4 mg Q6H PRN IV NAUSEA AND/OR VOMITING; Start at 12:30 Oxycodone/ Acetaminophen (Endocet (10/ 325)) 1 tab Q4H PRN PO PAIN LEVEL 1-5 Last administered on 09/26/16 21:22; Admin Dose 1 TAB; Start 09/26/16 at 12:30 Oxycodone/ Acetaminophen (Endocet (10/ 325)) 2 tab Q4H PRN PO PAIN LEVEL 6-10 Last administered on 09/29/16 08:27; Admin Dose 2 TAB; Start 09/26/16 at 12:30 Phenol (Cepastat Lozenge) 1 lozenge PRN PRN [place] SORE THROAT; Start 09/26/16 at 12:30 Tamsulosin HCl (Flomax) 0.8 mg DAILY PO Last administered on 10/01/16 08:36; Admin Dose 0.8 MG; Start 09/27/16 at 09:00 Miscellaneous Information 1 ea NOTE XX ; Start 09/26/16 at 12:30 Glucose (Glutose) 15 gm Q15M PRN PO DECREASED GLUCOSE; Start 09/26/16 at 12:30 Glucose (Glutose) 22.5 gm Q15M PRN PO DECREASED GLUCOSE; Start 09/26/16 at 12: 30 Dextrose (D50w Syringe) 25 ml Q15M PRN IV DECREASED GLUCOSE; Start 09/26/16 at 12:30 Dextrose (D50w Syringe) 50 ml Q15M PRN IV DECREASED GLUCOSE; Start 09/26/16 at 12:30 Glucagon (Glucagen) 1 mg Q15M PRN IM DECREASED GLUCOSE; Start 09/26/16 at 12:30 Glucose (Glutose) 15 gm Q15M PRN BUCCAL DECREASED GLUCOSE; Start 09/26/16 at 12 :30 Polyethylene Glycol (Miralax) 119 gm DAILY PRN PO CONSTIPATION; Start 09/26/16 at 15:00 Hydrochlorothiazide (Hydrochlorothiazide) 12.5 mg DAILY PO Last administered on 10/01/16 08:36; Admin Dose 12.5 MG; Start 09/29/16 at 09:00 Docusate Sodium (Colace) 100 mg BID PO Last administered on 10/01/16 20:57; Admin Dose 100 MG; Start 10/01/16 at 21:00 Lactulose (Enulose) 20 gm DAILY PRN PO CONSTIPATION Last administered on 12:41; Admin Dose 20 GM; Start 10/01/16 at 11:30 Magnesium Hydroxide (Milk Of Mag) 30 ml DAILY PRN PO CONSTIPATION; Start at 11:30 RAUL JORDAN MD Oct 02, 2016 07:47
[2016-10-02] MEDS: metFORMIN 500 MG TAB PO SCH ×2 (09:58→17:47)
[2016-10-02] MEDS: DOCUSATE SODIUM 100 MG CAP PO SCH ×2 (09:58→20:39)
[2016-10-02] MEDS: HYDROmorphONE 1 MG/ML SYG IV PRN (09:59)
[2016-10-02] MEDS: BENAZEPRIL 20 MG TAB PO SCH (10:13)
[2016-10-02] MEDS: HYDROCHLOROTHIAZIDE 12.5 MG CAP PO SCH (10:14)
[2016-10-02] MEDS: TAMSULOSIN (SR) 0.4 MG CAP PO SCH (10:15)
--- NOTE | 2016-10-02 13:06 | CONS ---
Date/Time of Note Date/Time of Note DATE: 10/02/16 TIME: 13:05 Consult Date/Type/Reason Admit Date/Time Sep 26, 2016 at 11:00 Type of Consultation: Medicine Ordering Provider: JAKOB CHOW MD Subjective Patient in good spirits Objective Lungs clear anteriorly abdomen soft Standby assist ambulation Vital Signs Date Time Temp Pulse Resp B/P Pulse Ox O2 Delivery O2 Flow Rate FiO2 10/02/16 07:43 98.4 71 18 138/72 96 Intake and Output 10/01/16 10/01/16 10/02/16 15:00 23:00 07:00 Intake Total 630 ml 700 ml Output Total 400 ml 200 ml Balance -400 ml 430 ml 700 ml Results/Medications Result Diagram: 09/29/16 0600 09/30/16 0610 Results 24 hrs Laboratory Tests Test 10/01/16 17:29 10/02/16 08:06 10/02/16 12:23 Bedside Glucose 151 127 130 Medications Current Medications Acetaminophen (Tylenol Tab) 650 mg Q4H PRN PO CAMPA OR TEMP GREATER THAN 101.3F; Start 09/26/16 at 12:00 Senna (Senokot) 1 tab HS PO Last administered on 10/01/16 20:57; Admin Dose 1 TAB; Start 09/26/16 at 21:00 Al Hydrox/Mg Hydrox/Simethicone (Mag-Al Plus) 15 ml Q6H PRN PO CONSTIPATION/ DYSPEPSIA Last administered on 09/26/16 21:34; Admin Dose 15 ML; Start at 12:30 Atorvastatin Calcium (Lipitor) 20 mg HS PO Last administered on 10/01/16 20:57 ; Admin Dose 20 MG; Start 09/26/16 at 21:00 Benazepril HCl (Lotensin) 20 mg DAILY PO Last administered on 10/02/16 10:13; Admin Dose 20 MG; Start 09/27/16 at 09:00 Bisacodyl (Dulcolax Supp) 10 mg DAILY PRN [place] CONSTIPATION; Start 09/26/16 at 12 :30 Cyclobenzaprine HCl (Flexeril) 10 mg TID PRN PO MUSCLE SPASMS Last administered on 09/29/16 13:10; Admin Dose 10 MG; Start 09/26/16 at 12:30 Diphenhydramine HCl (Benadryl) 25 mg Q6H PRN IV ITCHING; Start 09/26/16 at 12: 30 Hydralazine HCl (Apresoline) 2 mg Q10MIN PRN IV ELEVATED BLOOD PRESSURE; Start 09/26/16 at 12:30 Hydromorphone HCl (Dilaudid) 0.2 mg Q1H PRN IV BREAKTHROUGH PAIN Last administered on 09/29/16 17:41; Admin Dose 0.2 MG; Start 09/26/16 at 12:30 Naloxone HCl (Narcan) 0.2 mg Q2M PRN IV RR 8 BREATHS/MIN OR LESS; Start at 12:30 Ondansetron HCl (Zofran Inj) 4 mg Q6H PRN IV NAUSEA AND/OR VOMITING; Start at 12:30 Oxycodone/ Acetaminophen (Endocet (10/ 325)) 1 tab Q4H PRN PO PAIN LEVEL 1-5 Last administered on 09/26/16 21:22; Admin Dose 1 TAB; Start 09/26/16 at 12:30 Oxycodone/ Acetaminophen (Endocet (10/ 325)) 2 tab Q4H PRN PO PAIN LEVEL 6-10 Last administered on 09/29/16 08:27; Admin Dose 2 TAB; Start 09/26/16 at 12:30 Phenol (Cepastat Lozenge) 1 lozenge PRN PRN [place] SORE THROAT; Start 09/26/16 at 12:30 Tamsulosin HCl (Flomax) 0.8 mg DAILY PO Last administered on 10/02/16 10:15; Admin Dose 0.8 MG; Start 09/27/16 at 09:00 Miscellaneous Information 1 ea NOTE XX ; Start 09/26/16 at 12:30 Glucose (Glutose) 15 gm Q15M PRN PO DECREASED GLUCOSE; Start 09/26/16 at 12:30 Glucose (Glutose) 22.5 gm Q15M PRN PO DECREASED GLUCOSE; Start 09/26/16 at 12: 30 Dextrose (D50w Syringe) 25 ml Q15M PRN IV DECREASED GLUCOSE; Start 09/26/16 at 12:30 Dextrose (D50w Syringe) 50 ml Q15M PRN IV DECREASED GLUCOSE; Start 09/26/16 at 12:30 Glucagon (Glucagen) 1 mg Q15M PRN IM DECREASED GLUCOSE; Start 09/26/16 at 12:30 Glucose (Glutose) 15 gm Q15M PRN BUCCAL DECREASED GLUCOSE; Start 09/26/16 at 12 :30 Polyethylene Glycol (Miralax) 119 gm DAILY PRN PO CONSTIPATION; Start 09/26/16 at 15:00 Hydrochlorothiazide (Hydrochlorothiazide) 12.5 mg DAILY PO Last administered on 10/02/16 10:14; Admin Dose 12.5 MG; Start 09/29/16 at 09:00 Docusate Sodium (Colace) 100 mg BID PO Last administered on 10/02/16 09:58; Admin Dose 100 MG; Start 10/01/16 at 21:00 Lactulose (Enulose) 20 gm DAILY PRN PO CONSTIPATION Last administered on 12:41; Admin Dose 20 GM; Start 10/01/16 at 11:30 Magnesium Hydroxide (Milk Of Mag) 30 ml DAILY PRN PO CONSTIPATION; Start at 11:30 Assessment/Plan Additional Assessment/Plan Rehab- status post placement of bilateral pedicle screws at L2-L3, L4-L5 and posterior lateral fusion at L2-L3, L3 -L4, L4- L5. Continue rehab interdisciplinary treatment plan pain- controlled. - voiding well Anemia. Continue to monitor hemoglobin/hematocrit. Diabetes mellitus type 2. Continue to monitor blood sugars, controlled. Continue medical management per internal medicine. Hypertension. Continue to monitor BP, BP improved with adjustment in medication. Internal medicine managing. History of left foot drop. History of right shoulder replacement with decreased ROM. Hyperlipidemia. Continue statin. GI- Continue bowel regimen. Functional Impact of comorbidity- Left foot drop affects mobility, however patient continues to improve BELLE AVERY MD Oct 02, 2016 13:06
[2016-10-02] MEDS: OXYCODONE/ACETAMINOPHEN (10/325) TAB PO PRN (14:33)
[2016-10-02 20:00] VITALS: BP 128/59; RESP 18
[2016-10-02] MEDS: SENNA TAB PO SCH (20:38)
[2016-10-02] MEDS: ATORVASTATIN 20 MG TAB PO SCH (20:38)
[2016-10-03] MEDS: INSULIN ASPART [NOVOLOG] 3 ML PEN SC SCH ×3 (07:05→17:05)
[2016-10-03 07:30] VITALS: BP 121/58; RESP 18
[2016-10-03 08:08] LABS: CALCIUM 9.4 mg/dl (8.4-10.2); CREATININE 1.12 mg/dl (0.61-1.24); MAGNESIUM 1.9 mg/dl (1.7-2.5); POTASSIUM 4.3 mmol/L (3.5-5.1)
[2016-10-03 08:26] LABS: BASOPHILS % 0.5 % (0.0-2.0); EOSINOPHILS # 0.2 10^3/ul (0.0-0.5); EOSINOPHILS % 2.4 % (0.0-7.0); HEMATOCRIT 35.5 % (42.0-52.0); HEMOGLOBIN 12.1 g/dl (14.0-18.0); LYMPHOCYTES # 2.3 10^3/ul (0.8-2.9); LYMPHOCYTES % 26.3 % (15.0-51.0); MEAN CORPUSCULAR HEMOGLOBIN 30.9 pg (29.0-33.0); MEAN CORPUSCULAR HGB CONC 34.1 g/dl (32.0-37.0); MEAN CORPUSCULAR VOLUME 90.8 fl (82.0-101.0); MEAN PLATELET VOLUME 9.6 fl (7.4-10.4); MONOCYTE # 0.7 10^3/ul (0.3-0.9); MONOCYTES % 8.3 % (0.0-11.0); NEUTROPHIL # 5.4 10^3/ul (1.6-7.5); NEUTROPHILS % 61.7 % (39.0-77.0); PLATELET COUNT 312 10^3/UL (140-415); RED BLOOD COUNT 3.91 10^6/ul (4.70-6.10); RED CELL DISTRIBUTION WIDTH 13.3 % (11.5-14.5); WHITE BLOOD COUNT 8.8 10^3/ul (4.8-10.8)
[2016-10-03] MEDS: TAMSULOSIN (SR) 0.4 MG CAP PO SCH (09:08)
[2016-10-03] MEDS: metFORMIN 500 MG TAB PO SCH ×2 (09:08→18:07)
[2016-10-03] MEDS: DOCUSATE SODIUM 100 MG CAP PO SCH ×2 (09:08→20:21)
[2016-10-03] MEDS: BENAZEPRIL 20 MG TAB PO SCH (09:09)
[2016-10-03] MEDS: HYDROCHLOROTHIAZIDE 12.5 MG CAP PO SCH (09:09)
--- NOTE | 2016-10-03 10:48 | CONS ---
Date/Time of Note Date/Time of Note DATE: 10/03/16 TIME: 10:47 Consult Date/Type/Reason Admit Date/Time Sep 26, 2016 at 11:00 Type of Consultation: Medicine Ordering Provider: JAKOB CHOW MD Subjective Pain under control Objective Lungs clear anteriorly Standby assist to ambulate Vital Signs Date Time Temp Pulse Resp B/P Pulse Ox O2 Delivery O2 Flow Rate FiO2 10/02/16 20:00 98.7 80 18 128/59 98 Intake and Output 10/02/16 10/02/16 10/03/16 15:00 23:00 07:00 Intake Total 1200 ml 500 ml 700 ml Output Total 400 ml 200 ml Balance 800 ml 300 ml 700 ml Results/Medications Result Diagram: 10/03/1624 10/03/16 0624 Results 24 hrs Laboratory Tests Test 10/02/16 12:23 10/02/16 17:28 10/03/16 06:24 10/03/16 07:49 Bedside Glucose 130 141 121 White Blood Count 8.8 Red Blood Count 3.91 L Hemoglobin 12.1 L Hematocrit 35.5 L Mean Corpuscular Volume 90.8 Mean Corpuscular Hemoglobin 30.9 Mean Corpuscular Hemoglobin Concent 34.1 Red Cell Distribution Width 13.3 Platelet Count 312 # Mean Platelet Volume 9.6 Neutrophils % 61.7 Lymphocytes % 26.3 Monocytes % 8.3 Eosinophils % 2.4 Basophils % 0.5 Nucleated Red Blood Cells % 0.0 Neutrophils # 5.4 Lymphocytes # 2.3 Monocytes # 0.7 Eosinophils # 0.2 Basophils # 0.0 Nucleated Red Blood Cells # 0.0 Sodium Level 137 Potassium Level 4.3 Chloride Level 98 Carbon Dioxide Level 24 Anion Gap 19 H Blood Urea Nitrogen 28 H Creatinine 1.12 Glucose Level 125 Calcium Level 9.4 Magnesium Level 1.9 Medications Current Medications Acetaminophen (Tylenol Tab) 650 mg Q4H PRN PO CAMPA OR TEMP GREATER THAN 101.3F; Start 09/26/16 at 12:00 Senna (Senokot) 1 tab HS PO Last administered on 10/02/16 20:38; Admin Dose 1 TAB; Start 09/26/16 at 21:00 Al Hydrox/Mg Hydrox/Simethicone (Mag-Al Plus) 15 ml Q6H PRN PO CONSTIPATION/ DYSPEPSIA Last administered on 09/26/16 21:34; Admin Dose 15 ML; Start at 12:30 Atorvastatin Calcium (Lipitor) 20 mg HS PO Last administered on 10/02/16 20:38 ; Admin Dose 20 MG; Start 09/26/16 at 21:00 Benazepril HCl (Lotensin) 20 mg DAILY PO Last administered on 10/03/16 09:09; Admin Dose 20 MG; Start 09/27/16 at 09:00 Bisacodyl (Dulcolax Supp) 10 mg DAILY PRN [place] CONSTIPATION; Start 09/26/16 at 12 :30 Cyclobenzaprine HCl (Flexeril) 10 mg TID PRN PO MUSCLE SPASMS Last administered on 09/29/16 13:10; Admin Dose 10 MG; Start 09/26/16 at 12:30 Diphenhydramine HCl (Benadryl) 25 mg Q6H PRN IV ITCHING; Start 09/26/16 at 12: 30 Hydralazine HCl (Apresoline) 2 mg Q10MIN PRN IV ELEVATED BLOOD PRESSURE; Start 09/26/16 at 12:30 Hydromorphone HCl (Dilaudid) 0.2 mg Q1H PRN IV BREAKTHROUGH PAIN Last administered on 09/29/16 17:41; Admin Dose 0.2 MG; Start 09/26/16 at 12:30 Naloxone HCl (Narcan) 0.2 mg Q2M PRN IV RR 8 BREATHS/MIN OR LESS; Start at 12:30 Ondansetron HCl (Zofran Inj) 4 mg Q6H PRN IV NAUSEA AND/OR VOMITING; Start at 12:30 Oxycodone/ Acetaminophen (Endocet (10/ 325)) 1 tab Q4H PRN PO PAIN LEVEL 1-5 Last administered on 09/26/16 21:22; Admin Dose 1 TAB; Start 09/26/16 at 12:30 Oxycodone/ Acetaminophen (Endocet (10/ 325)) 2 tab Q4H PRN PO PAIN LEVEL 6-10 Last administered on 10/02/16 14:33; Admin Dose 2 TAB; Start 09/26/16 at 12:30 Phenol (Cepastat Lozenge) 1 lozenge PRN PRN [place] SORE THROAT; Start 09/26/16 at 12:30 Tamsulosin HCl (Flomax) 0.8 mg DAILY PO Last administered on 10/03/16 09:08; Admin Dose 0.8 MG; Start 09/27/16 at 09:00 Miscellaneous Information 1 ea NOTE XX ; Start 09/26/16 at 12:30 Glucose (Glutose) 15 gm Q15M PRN PO DECREASED GLUCOSE; Start 09/26/16 at 12:30 Glucose (Glutose) 22.5 gm Q15M PRN PO DECREASED GLUCOSE; Start 09/26/16 at 12: 30 Dextrose (D50w Syringe) 25 ml Q15M PRN IV DECREASED GLUCOSE; Start 09/26/16 at 12:30 Dextrose (D50w Syringe) 50 ml Q15M PRN IV DECREASED GLUCOSE; Start 09/26/16 at 12:30 Glucagon (Glucagen) 1 mg Q15M PRN IM DECREASED GLUCOSE; Start 09/26/16 at 12:30 Glucose (Glutose) 15 gm Q15M PRN BUCCAL DECREASED GLUCOSE; Start 09/26/16 at 12 :30 Polyethylene Glycol (Miralax) 119 gm DAILY PRN PO CONSTIPATION; Start 09/26/16 at 15:00 Hydrochlorothiazide (Hydrochlorothiazide) 12.5 mg DAILY PO Last administered on 10/03/16 09:09; Admin Dose 12.5 MG; Start 09/29/16 at 09:00 Docusate Sodium (Colace) 100 mg BID PO Last administered on 10/03/16 09:08; Admin Dose 100 MG; Start 10/01/16 at 21:00 Lactulose (Enulose) 20 gm DAILY PRN PO CONSTIPATION Last administered on 12:41; Admin Dose 20 GM; Start 10/01/16 at 11:30 Magnesium Hydroxide (Milk Of Mag) 30 ml DAILY PRN PO CONSTIPATION; Start at 11:30 Assessment/Plan Additional Assessment/Plan Rehab- status post placement of bilateral pedicle screws at L2-L3, L4-L5 and posterior lateral fusion at L2-L3, L3 -L4, L4- L5. Continue rehab program. Anticipate discharge tomorrow pain- controlled. - voiding well Anemia. Continue to monitor hemoglobin/hematocrit. Diabetes mellitus type 2. Continue to monitor blood sugars, controlled. Continue medical management per internal medicine. Hypertension. Continue to monitor BP, BP improved with adjustment in medication. Internal medicine managing. History of left foot drop. History of right shoulder replacement with decreased ROM. Hyperlipidemia. Continue statin. GI- Continue bowel regimen. BELLE AVERY MD Oct 03, 2016 10:47
--- NOTE | 2016-10-03 11:05 | CONS ---
Date/Time of Note Date/Time of Note DATE: 10/03/16 TIME: 11:04 Assessment/Plan Assessment/Plan Additional Assessment/Plan 1. Doing very well post op lumbar back surg 2. BP well controlled. 3. Anticipate dc tomm Consultation Date/Type/Reason Admit Date/Time Sep 26, 2016 at 11:00 Type of Consultation: Medicine Referring Provider: JAKOB CHOW MD Detailed Summary Respiratory: No shortness of breath Cardiovascular: No chest pain, No lightheadedness Gastrointestinal: no complaints Genitourinary: no complaints Musculoskeletal: back pain (is much less) Exam/Review of Systems Vital Signs Vitals Vital Signs Date Time Temp Pulse Resp B/P Pulse Ox O2 Delivery O2 Flow Rate FiO2 10/02/16 20:00 98.7 80 18 128/59 98 Intake and Output 10/02/16 10/02/16 10/03/16 15:00 23:00 07:00 Intake Total 1200 ml 500 ml 700 ml Output Total 400 ml 200 ml Balance 800 ml 300 ml 700 ml Exam Neck: No jvd Respiratory: clear to auscultation Cardiovascular: regular rate and rhythm Gastrointestinal: soft Extremities: No edema (and no calf tend) Results Result Diagram: 10/03/16 0624 10/03/16 0624 Results 24 hrs Laboratory Tests Test 10/02/16 12:23 10/02/16 17:28 10/03/16 06:24 10/03/16 07:49 Bedside Glucose 130 141 121 White Blood Count 8.8 Red Blood Count 3.91 L Hemoglobin 12.1 L Hematocrit 35.5 L Mean Corpuscular Volume 90.8 Mean Corpuscular Hemoglobin 30.9 Mean Corpuscular Hemoglobin Concent 34.1 Red Cell Distribution Width 13.3 Platelet Count 312 # Mean Platelet Volume 9.6 Neutrophils % 61.7 Lymphocytes % 26.3 Monocytes % 8.3 Eosinophils % 2.4 Basophils % 0.5 Nucleated Red Blood Cells % 0.0 Neutrophils # 5.4 Lymphocytes # 2.3 Monocytes # 0.7 Eosinophils # 0.2 Basophils # 0.0 Nucleated Red Blood Cells # 0.0 Sodium Level 137 Potassium Level 4.3 Chloride Level 98 Carbon Dioxide Level 24 Anion Gap 19 H Blood Urea Nitrogen 28 H Creatinine 1.12 Glucose Level 125 Calcium Level 9.4 Magnesium Level 1.9 Medications Medications Current Medications Acetaminophen (Tylenol Tab) 650 mg Q4H PRN PO CAMPA OR TEMP GREATER THAN 101.3F; Start 09/26/16 at 12:00 Senna (Senokot) 1 tab HS PO Last administered on 10/02/16 20:38; Admin Dose 1 TAB; Start 09/26/16 at 21:00 Al Hydrox/Mg Hydrox/Simethicone (Mag-Al Plus) 15 ml Q6H PRN PO CONSTIPATION/ DYSPEPSIA Last administered on 09/26/16 21:34; Admin Dose 15 ML; Start at 12:30 Atorvastatin Calcium (Lipitor) 20 mg HS PO Last administered on 10/02/16 20:38 ; Admin Dose 20 MG; Start 09/26/16 at 21:00 Benazepril HCl (Lotensin) 20 mg DAILY PO Last administered on 10/03/16 09:09; Admin Dose 20 MG; Start 09/27/16 at 09:00 Bisacodyl (Dulcolax Supp) 10 mg DAILY PRN [place] CONSTIPATION; Start 09/26/16 at 12 :30 Cyclobenzaprine HCl (Flexeril) 10 mg TID PRN PO MUSCLE SPASMS Last administered on 09/29/16 13:10; Admin Dose 10 MG; Start 09/26/16 at 12:30 Diphenhydramine HCl (Benadryl) 25 mg Q6H PRN IV ITCHING; Start 09/26/16 at 12: 30 Hydralazine HCl (Apresoline) 2 mg Q10MIN PRN IV ELEVATED BLOOD PRESSURE; Start 09/26/16 at 12:30 Hydromorphone HCl (Dilaudid) 0.2 mg Q1H PRN IV BREAKTHROUGH PAIN Last administered on 09/29/16 17:41; Admin Dose 0.2 MG; Start 09/26/16 at 12:30 Naloxone HCl (Narcan) 0.2 mg Q2M PRN IV RR 8 BREATHS/MIN OR LESS; Start at 12:30 Ondansetron HCl (Zofran Inj) 4 mg Q6H PRN IV NAUSEA AND/OR VOMITING; Start at 12:30 Oxycodone/ Acetaminophen (Endocet (10/ 325)) 1 tab Q4H PRN PO PAIN LEVEL 1-5 Last administered on 09/26/16 21:22; Admin Dose 1 TAB; Start 09/26/16 at 12:30 Oxycodone/ Acetaminophen (Endocet (10/ 325)) 2 tab Q4H PRN PO PAIN LEVEL 6-10 Last administered on 10/02/16 14:33; Admin Dose 2 TAB; Start 09/26/16 at 12:30 Phenol (Cepastat Lozenge) 1 lozenge PRN PRN [place] SORE THROAT; Start 09/26/16 at 12:30 Tamsulosin HCl (Flomax) 0.8 mg DAILY PO Last administered on 10/03/16 09:08; Admin Dose 0.8 MG; Start 09/27/16 at 09:00 Miscellaneous Information 1 ea NOTE XX ; Start 09/26/16 at 12:30 Glucose (Glutose) 15 gm Q15M PRN PO DECREASED GLUCOSE; Start 09/26/16 at 12:30 Glucose (Glutose) 22.5 gm Q15M PRN PO DECREASED GLUCOSE; Start 09/26/16 at 12: 30 Dextrose (D50w Syringe) 25 ml Q15M PRN IV DECREASED GLUCOSE; Start 09/26/16 at 12:30 Dextrose (D50w Syringe) 50 ml Q15M PRN IV DECREASED GLUCOSE; Start 09/26/16 at 12:30 Glucagon (Glucagen) 1 mg Q15M PRN IM DECREASED GLUCOSE; Start 09/26/16 at 12:30 Glucose (Glutose) 15 gm Q15M PRN BUCCAL DECREASED GLUCOSE; Start 09/26/16 at 12 :30 Polyethylene Glycol (Miralax) 119 gm DAILY PRN PO CONSTIPATION; Start 09/26/16 at 15:00 Hydrochlorothiazide (Hydrochlorothiazide) 12.5 mg DAILY PO Last administered on 10/03/16 09:09; Admin Dose 12.5 MG; Start 09/29/16 at 09:00 Docusate Sodium (Colace) 100 mg BID PO Last administered on 10/03/16 09:08; Admin Dose 100 MG; Start 10/01/16 at 21:00 Lactulose (Enulose) 20 gm DAILY PRN PO CONSTIPATION Last administered on 12:41; Admin Dose 20 GM; Start 10/01/16 at 11:30 Magnesium Hydroxide (Milk Of Mag) 30 ml DAILY PRN PO CONSTIPATION; Start at 11:30 RAUL JORDAN MD Oct 03, 2016 11:05
[2016-10-03 20:13] VITALS: BP 124/58; RESP 19
[2016-10-03] MEDS: ATORVASTATIN 20 MG TAB PO SCH (20:21)
[2016-10-03] MEDS: SENNA TAB PO SCH (20:21)
[2016-10-04] MEDS: INSULIN ASPART [NOVOLOG] 3 ML PEN SC SCH (07:05)
[2016-10-04] MEDS: BENAZEPRIL 20 MG TAB PO SCH (08:37)
[2016-10-04] MEDS: DOCUSATE SODIUM 100 MG CAP PO SCH (08:37)
[2016-10-04] MEDS: metFORMIN 500 MG TAB PO SCH (08:37)
[2016-10-04] MEDS: HYDROCHLOROTHIAZIDE 12.5 MG CAP PO SCH (08:38)
[2016-10-04] MEDS: TAMSULOSIN (SR) 0.4 MG CAP PO SCH (08:38)
--- NOTE | 2016-10-04 10:33 | CONS ---
Date/Time of Note Date/Time of Note DATE: 10/04/16 TIME: 10:32 Assessment/Plan Assessment/Plan Additional Assessment/Plan 1. Stable for dc 2. BP well controlled 3. CHO control is acceptable 4. Rec he follow up with his reg IM MD regarding continued need for diuretic Consultation Date/Type/Reason Admit Date/Time Sep 26, 2016 at 11:00 Type of Consultation: Medicine Referring Provider: JAKOB CHOW MD Detailed Summary Respiratory: No cough, No shortness of breath Cardiovascular: No chest pain Gastrointestinal: no complaints Genitourinary: no complaints Musculoskeletal: back pain (mild ) Exam/Review of Systems Vital Signs Vitals Vital Signs Date Time Temp Pulse Resp B/P Pulse Ox O2 Delivery O2 Flow Rate FiO2 10/03/16 20:13 98.9 85 19 124/58 99 Intake and Output 10/03/16 10/03/16 10/04/16 15:00 23:00 07:00 Intake Total 880 ml 240 ml Output Total 460 ml 750 ml Balance 420 ml -510 ml Exam Neck: No jvd Respiratory: clear to auscultation Cardiovascular: regular rate and rhythm Gastrointestinal: soft Extremities: No edema (and no calf tend) Results Result Diagram: 10/03/16 0624 10/03/16 0624 Results 24 hrs Laboratory Tests Test 10/03/16 12:18 10/03/16 17:01 10/04/16 07:48 Bedside Glucose 182 131 127 Medications Medications Current Medications Acetaminophen (Tylenol Tab) 650 mg Q4H PRN PO CAMPA OR TEMP GREATER THAN 101.3F; Start 09/26/16 at 12:00 Senna (Senokot) 1 tab HS PO Last administered on 10/03/16 20:21; Admin Dose 1 TAB; Start 09/26/16 at 21:00 Al Hydrox/Mg Hydrox/Simethicone (Mag-Al Plus) 15 ml Q6H PRN PO CONSTIPATION/ DYSPEPSIA Last administered on 09/26/16 21:34; Admin Dose 15 ML; Start at 12:30 Atorvastatin Calcium (Lipitor) 20 mg HS PO Last administered on 10/03/16 20:21 ; Admin Dose 20 MG; Start 09/26/16 at 21:00 Benazepril HCl (Lotensin) 20 mg DAILY PO Last administered on 10/04/16 08:37; Admin Dose 20 MG; Start 09/27/16 at 09:00 Bisacodyl (Dulcolax Supp) 10 mg DAILY PRN [place] CONSTIPATION; Start 09/26/16 at 12 :30 Cyclobenzaprine HCl (Flexeril) 10 mg TID PRN PO MUSCLE SPASMS Last administered on 09/29/16 13:10; Admin Dose 10 MG; Start 09/26/16 at 12:30 Diphenhydramine HCl (Benadryl) 25 mg Q6H PRN IV ITCHING; Start 09/26/16 at 12: 30 Hydralazine HCl (Apresoline) 2 mg Q10MIN PRN IV ELEVATED BLOOD PRESSURE; Start 09/26/16 at 12:30 Hydromorphone HCl (Dilaudid) 0.2 mg Q1H PRN IV BREAKTHROUGH PAIN Last administered on 09/29/16 17:41; Admin Dose 0.2 MG; Start 09/26/16 at 12:30 Naloxone HCl (Narcan) 0.2 mg Q2M PRN IV RR 8 BREATHS/MIN OR LESS; Start at 12:30 Ondansetron HCl (Zofran Inj) 4 mg Q6H PRN IV NAUSEA AND/OR VOMITING; Start at 12:30 Oxycodone/ Acetaminophen (Endocet (10/ 325)) 1 tab Q4H PRN PO PAIN LEVEL 1-5 Last administered on 09/26/16 21:22; Admin Dose 1 TAB; Start 09/26/16 at 12:30 Oxycodone/ Acetaminophen (Endocet (10/ 325)) 2 tab Q4H PRN PO PAIN LEVEL 6-10 Last administered on 10/02/16 14:33; Admin Dose 2 TAB; Start 09/26/16 at 12:30 Phenol (Cepastat Lozenge) 1 lozenge PRN PRN [place] SORE THROAT; Start 09/26/16 at 12:30 Tamsulosin HCl (Flomax) 0.8 mg DAILY PO Last administered on 10/04/16 08:38; Admin Dose 0.8 MG; Start 09/27/16 at 09:00 Miscellaneous Information 1 ea NOTE XX ; Start 09/26/16 at 12:30 Glucose (Glutose) 15 gm Q15M PRN PO DECREASED GLUCOSE; Start 09/26/16 at 12:30 Glucose (Glutose) 22.5 gm Q15M PRN PO DECREASED GLUCOSE; Start 09/26/16 at 12: 30 Dextrose (D50w Syringe) 25 ml Q15M PRN IV DECREASED GLUCOSE; Start 09/26/16 at 12:30 Dextrose (D50w Syringe) 50 ml Q15M PRN IV DECREASED GLUCOSE; Start 09/26/16 at 12:30 Glucagon (Glucagen) 1 mg Q15M PRN IM DECREASED GLUCOSE; Start 09/26/16 at 12:30 Glucose (Glutose) 15 gm Q15M PRN BUCCAL DECREASED GLUCOSE; Start 09/26/16 at 12 :30 Polyethylene Glycol (Miralax) 119 gm DAILY PRN PO CONSTIPATION; Start 09/26/16 at 15:00 Hydrochlorothiazide (Hydrochlorothiazide) 12.5 mg DAILY PO Last administered on 10/04/16 08:38; Admin Dose 12.5 MG; Start 09/29/16 at 09:00 Docusate Sodium (Colace) 100 mg BID PO Last administered on 10/04/16 08:37; Admin Dose 100 MG; Start 10/01/16 at 21:00 Lactulose (Enulose) 20 gm DAILY PRN PO CONSTIPATION Last administered on 12:41; Admin Dose 20 GM; Start 10/01/16 at 11:30 Magnesium Hydroxide (Milk Of Mag) 30 ml DAILY PRN PO CONSTIPATION; Start at 11:30 RAUL JORDAN MD Oct 04, 2016 10:33
--- NOTE | 2016-10-05 09:49 | DS ---
Date/Time of Note Date/Time of Note DATE: 10/05/16 TIME: 09:47 Discharge Summary Admission/Discharge Info Admit Date/Time Sep 26, 2016 at 11:00 Discharge Date/Time Oct 04, 2016 at 12:00 Discharge Diagnosis 1.Chronic low back pain with history of multiple prior spine surgeries with persistent pain and instability secondary to degenerative lumbar scoliosis at L2 to L3, L3 to L4, L4 to L5 and now status post placement of bilateral pedicle screws at L2 to L3, L4 to L5 and posterior lateral fusion at L2 to L3, L3 to L4 , L4 to L5. 2. Improvements in mobility, gait and balance. 3. Improvements in self-care and activities of daily living. 4. Acute postoperative pain, improved 5. History of benign prostatic hypertrophy with postoperative urinary retention. 6. Anemia. 7. Diabetes mellitus type 2. 8. Hypertension. 9. History of left foot drop. 10. History of right shoulder replacement. 11. Hyperlipidemia. 12. Constipation, resolved Patient Condition: Good Hospital Course Patient was admitted for comprehensive interdisciplinary rehab and made excellent functional gains during the course of the stay. Patient progressed from an initial moderate assist for self care and mobility, and progressed to the point of Stand By Assist for self care and mobility, including ambulating over 150 feet with the use of a front wheeled walker. Patient is being discharged home with the recommendation of home health PT and OT, and with DME of FWW, BSC and shower chair. DC medicines are per the medication reconciliation sheet. Home Meds Reported Medications Docusate Sodium (Col-Rite) 100 Mg Capsule, 100 MG PO DAILY, CAP 09/22/16 Benazepril Hcl* (Benazepril Hcl*) 10 Mg Tablet, 10 MG PO DAILY, #30 TAB 09/22/16 Metformin Hcl* (Metformin Hcl*) 500 Mg Tablet, 500 MG PO WITH BREAKFAST DINNE, # 30 TAB 09/22/16 Sitagliptin* (Januvia*) 50 Mg Tablet, 50 MG PO DAILY, TAB 11/27/13 Atorvastatin Calcium* (Atorvastatin Calcium*) 20 Mg Tablet, 20 MG PO HS, TAB 11/27/13 Tamsulosin Hcl* (Tamsulosin Hcl*) 0.4 Mg Cap.er.24h, 0.4 MG PO DAILY, CAP 11/27/13 Primary Care Provider Not On Staff Doctor BELLE AVERY MD Oct 05, 2016 09:48
== END 2016-10-04 12:00 | disposition home health service (06) | DRG 561 ==
LOC: VRC 09-26 11:00
PROVIDERS: ADMIT Physical Medicine & Rehabilitation; ATTEND Internal Medicine
PROC: F08Z0ZZ Bathing/Showering Techniques Treatment (ICD-10-PCS; principal; 2016-09-26)
PROC: F07Z5ZZ Bed Mobility Treatment (ICD-10-PCS; 2016-09-26)
DX: Z47.82 Encounter for orthopedic aftercare following scoliosis surgery (principal); D64.9 Anemia, unspecified; E11.9 Type 2 diabetes mellitus without complications; I10 Essential (primary) hypertension; E78.5 Hyperlipidemia, unspecified; M47.896 Other spondylosis, lumbar region; G89.18 Other acute postprocedural pain; N40.0 Benign prostatic hyperplasia without lower urinary tract symptoms; K59.00 Constipation, unspecified; R19.7 Diarrhea, unspecified
CPT/HCPCS: 80048; 80053; 81001; 82962; 83735; 84100; 85025; 87075; 87081; 87086; 97110; 97112; 97116; 97150; 97167; 97530; 97535; J1170; J1815